=== PATIENT | female | born 1935 | race Caucasian/White ===

== ENCOUNTER 2018-06-24 15:48 | Inpatient (IN) | payer OTHER ==
[~2018-06-24] VITALS: Ht 160 cm; Wt 55.9 kg
--- NOTE | 2018-06-24 16:15 | ED DYSPNEA/ASTHMA COMPLAINT ---
History of Present Illness General Chief Complaint: Dyspnea (COPD, CHF, Other) Stated Complaint: SOB Source: patient, family Exam Limitations: no limitations Vital Signs & Intake/Output Vital Signs & Intake/Output Vital Signs Date Time Temp Pulse Resp B/P B/P Pulse O2 O2 Flow FiO2 Mean Ox Delivery Rate 06/28 0905 89 130/68 06/28 0802 97 Nasal 3.0L Cannula 06/28 0800 96 Nasal 3.0L Cannula 06/28 0713 97.4 81 18 132/78 96 Nasal Cannula 06/28 0000 98 Nasal 3.0L Cannula 06/27 2222 96.8 72 18 128/84 98 Nasal 3.0L Cannula 06/27 1720 98 Nasal 3.0L Cannula 06/27 1600 Nasal 3.0L Cannula 06/27 1432 97.6 70 20 114/70 98 Nasal 3.0L Cannula ED Intake and Output 06/28 0000 06/27 1200 Intake Total 1020 Output Total 450 500 Balance 570 -500 Intake, IV 270 Intake, Oral 750 Number 5 Bowel Movements Output, Urine 450 500 Patient 124 lb Weight Weight Bed scale Measurement Method Allergies Coded Allergies: No Known Allergies (06/24/18) Reconcile Medications Apixaban (Eliquis) 5 MG TABLET 2 TAB PO BID Blood thinner Take 2 tablets twice a day till 07/03/18 and from 07/04/18 start taking 1 tablet twicw a day. Aspirin (Aspirin*) 81 MG TAB.CHEW 1 TAB PO DAILY HEART HEALTH (Reported) Dorzolamide HCl/Timolol Maleat (Dorzolamide-Timolol Eye Drops) 22.3 MG-6.8 MG/ML DROPS 1 GTT OPH BID EYE DROPS (Reported) Latanoprost 0.005 % DROPS 1 GTT OPH QPM EYE DROPS (Reported) Metoprolol Tartrate 100 MG TABLET 1 TAB PO DAILY BP (Reported) Pantoprazole Sodium 40 MG TABLET.DR 1 TAB PO DAILY PRN GERD (Reported) Rosuvastatin Calcium (Crestor) 5 MG TABLET 1 TAB PO DAILY HL (Reported) Triage Note: PT WITH HX OF LUNG CA IN REMISSION, TO ED WITH SOB WORSENING OVER THE LAST FEW DAYS. WEARS NC 02 AT NIGHT AT HOME. 02 SAT 82% RA IN TRIAGE. HX OF LEFT LOBECTOMY 10 YEARS AGO. AUDIBLE CRACKLES IN TRIAGE Triage Nurses Notes Reviewed? yes HPI: Patient presents for evaluation of worsening dyspnea over the past few days. Patient has a known history of lung cancer with a left pneumonectomy. She generally gets short of breath with exertion but this resolves typically within a few moments. Shortness of breath seems to have worsened over the past few days, coincident with chest congestion and a loose cough productive of brownish phlegm. The patient denies associated fever, wheezing, chest pain, leg swelling or orthopnea. She has oxygen available at home and previously only used it at night or on occasion. Over the past few days she has resorted to using the oxygen even during the day. Past History Travel History Traveled to [place] past 21 day No Medical History Any Pertinent Medical History? see below for history Respiratory: LUNG CA Gastrointestinal: HIATIAL HERNIA Cancer(s): LUNG CA Influenza Vaccine: 08/14/07 Surgical History Surgical History: LEFT LOBECTOMY Psychosocial History Who do you live with Patient/Self What is your primary language Indonesian Tobacco Use: Quit >30 days ago Family History Hx Contributory? No Review of Systems Review of Systems Constitutional: Reports: no symptoms. EENTM: Reports: no symptoms. Respiratory: Reports: see HPI. Cardiovascular: Reports: no symptoms. GI: Reports: no symptoms. Genitourinary: Reports: no symptoms. Musculoskeletal: Reports: no symptoms. Skin: Reports: no symptoms. Neurological/Psychological: Reports: no symptoms. Hematologic/Endocrine: Reports: no symptoms. Immunologic/Allergic: Reports: no symptoms. All Other Systems: Reviewed and Negative Physical Exam Physical Exam Respiratory: SEE BELOW Comments: Gen.: Well-nourished, well-developed, no acute respiratory distress. Head: Normocephalic, atraumatic. Eyes: Normal inspection bilaterally Ears: Normal inspection bilaterally Nose: Normal inspection Throat/mouth : Moist mucosa Neck: Supple, full range of motion, no goiter, mild JVD Heart: Regular rate and rhythm, no murmurs rubs or gallops Lungs: Decreased air entry over the left chest, thick rhonchi diffusely in the right chest Chest: Nontender Back: Normal range of motion Abdomen: Soft, nontender, nondistended, normal bowel sounds Extremities: Normal range of motion grossly, equal radial pulses, no cyanosis, 1 + pretibial edema, pitting, bilateral lower extremities Neurologic: Cranial nerves grossly intact, speech is clear Skin: warm and dry Psychiatric: Calm, cooperative, no apparent delusions or hallucinations Core Measures ACS in differential dx? No CVA/TIA Diagnosis No Sepsis Present: No Sepsis Focused Exam Completed? No Progress Differential Diagnosis: bronchitis, CHF, COPD, musculoskeletal pain, pulmonary embolism, pneumonia, pneumothorax, unstable angina Plan of Care: Orders Procedure Date/time Status CBC WITHOUT DIFFERENTIAL 06/29 600 Active BASIC ELECTROLYTES PLUS BUN&CR 06/29 06 Active RT: Reevaluation 06/28 0950 Active RT RE-EVALUATION 06/28 UNK Complete INCENTIVE SPIROMETRY TRX (GEN) 06/28 UNK Complete PT EVAL LOW COMPLEX 20 MIN 06/27 UNK Complete Gait Training 06/27 UNK Complete Current Medications Sig/Christina Start time Last Medication Dose Stop Time Status Admin Apixaban 10 MG BID 06/26 1530 AC 06/28 (Eliquis) 07/03 09 0904 Guaifenesin 10 ML Q6P PRN 06/25 2115 AC 06/28 (Robitussin) 0903 Dorzolamide HCl 1 GTT BID 06/25 2100 AC 06/28 (Trusopt 2% 10 ML) 0903 Latanoprost 1 GTT QPM 06/25 2100 AC 06/27 (Xalatan) 2202 Timolol Maleate 1 GTT BID 06/25 2100 AC 06/28 (Timoptic) 0903 Albuterol Sulfate 3 ML EVERY 4 HRS/AWAKE 06/25 1200 AC 06/28 (Proventil) 1159 Ceftriaxone Sodium 1,000 MG DAILY 06/25 1105 AC 06/28 (Rocephin) 0903 Methylprednisolone 40 MG Q12 06/25 1105 AC 06/28 (Solumedrol) 0903 Azithromycin 500 MG DAILY 06/25 1009 AC 06/28 (Zithromax) 0905 Sodium Chloride 250 ML (Normal Saline 0.9%) Aspirin 81 MG DAILY 06/25 0900 AC 06/28 (Aspirin) 0904 Atorvastatin Calcium 5 MG DAILY 06/25 0900 AC 06/28 (Lipitor) 0906 Metoprolol Tartrate 100 MG DAILY 06/25 0900 AC 06/28 (Lopressor) 0905 Oxycodone HCl 5 MG Q6PRN PRN 06/24 2045 AC (Roxicodone) Acetaminophen 650 MG Q6P PRN 06/24 2030 AC (Tylenol) Oxycodone/ 2 TAB Q6P PRN 06/24 2030 AC Acetaminophen (Percocet) Laboratory Tests 06/28/18 0620: Anion Gap 8, Estimated GFR 48 L, BUN/Creatinine Ratio 35.5 H, CBC w Diff MAN DIFF ORDERED, RBC 4.34, MCV 89.4, MCH 28.6, MCHC 32.0 L, RDW 16.5 H, MPV 8.3, Gran % 94.1 H, Lymphocytes % 2.6 L, Monocytes % 3.2, Eosinophils % 0.1, Basophils % 0, Absolute Granulocytes 8.8 H, Absolute Lymphocytes 0.2 L, Absolute Monocytes 0.3, Absolute Eosinophils 0, Absolute Basophils 0, Platelet Estimate VERIFIED BY SMEAR, Basophilic Stippling 1+, Anisocytosis 1+ 06/27/18 1620: Anion Gap 12, Estimated GFR 39 L, BUN/Creatinine Ratio 32.3 H 06/27/18 1300: Sodium Cancelled, Potassium Cancelled, Chloride Cancelled, Carbon Dioxide Cancelled, Anion Gap Cancelled, BUN Cancelled, Creatinine Cancelled, BUN/ Creatinine Ratio Cancelled Initial ED EKG: NSR, rate (60's) Prior EKG: unchanged Comments: 06/24/2018 6:00:15 PM patient's case discussed with Dr. Drake, Dr. Azul and case management. 06/24/2018 7:30:51 PM I have paged Dr. Drake regarding the pulmonary embolism seen on CTA of the chest. I have updated the MOD. Given that this patient has only one lung, patient's case will be discussed with Dr. Drake to determine where this patient will be treated (floors versus telemetry versus ICU). I have updated LITO. Of note, she has declined a rectal examination stating that she was just evaluated by Dr. Wisdom and has no reason for GI bleeding. Departure Departure Disposition: STILL A PATIENT Condition: Stable Clinical Impression Primary Impression: Dyspnea Qualifiers: Dyspnea type: dyspnea on exertion Qualified Code: R06.09 - Other forms of dyspnea Secondary Impressions: Hx of cancer of lung, Hyponatremia Referrals: Gabe Drake MD (PCP/Family) Departure Forms: Customer Survey General Discharge Information Prescriptions: Current Visit Scripts Apixaban (Eliquis) 2 TAB PO BID #60 TAB Take 2 tablets twice a day till 07/03/18 and from 07/04/18 start taking 1 tablet twicw a day. Admission Note Spoke With: Gabe Drake MD Documentation of Exam: Documentation of any treatments & extenuating circumstances including Concerns Regarding Discharge (functional status, medication knowledge or non-compliance, living conditions, etc.) that warrant an admission rather than observation: Patient presents with dyspnea of an unclear etiology. She has a history of left pneumonectomy secondary to lung cancer. In addition to this the patient's emergency Department evaluation reveals hyponatremia and hyperkalemia. The patient's dyspnea clearly worsens on exertion and she now requires oxygen supplementation to maintain normal O2 sats or elevations. I do not feel she is a good candidate for outpatient management. I feel the exertion of all patient treatment would worsen her hypoxia potentially lead to chest pain and respiratory failure. In addition, her hyponatremia places her at risk of tremors, muscle weakness and seizures. This would also compromised her ability to comply with outpatient treatment. While in the hospital I feel this patient requires serial sodium determinations and fluid restriction. If the patient's sodium does not respond then nephrology consultation to be considered. Given the patient's elevated d-dimer, a pulmonary embolism should also be pursued ( results of chest CTA should be reviewed and care adjusted accordingly). Given the patient's history of lung cancer and pneumonectomy, pulmonary consultation should be considered. I feels patient will require a multiple day hospitalization. Addendum: Additional testing is revealed that the patient has a right lower lung pulmonary embolism. This places her at high risk of worsening hypoxia and respiratory failure. She requires heparinization to treat her pulmonary embolism to prevent propagation. Critical Care Note Critical Care Note Critical Care Time: 30-74 min
[2018-06-24 16:24] LABS: ABSOLUTE BASOPHIL COUNT 0 /CUMM (0.0-0.2); ABSOLUTE EOSINOPHIL COUNT 0.3 /CUMM (0.0-0.7); ABSOLUTE GRANULOCYTE CT 6.3 /CUMM (1.4-6.5); ABSOLUTE LYMPH COUNT 0.6 /CUMM (1.2-3.4); ABSOLUTE MONOCYTE COUNT 0.5 /CUMM (0.10-0.60); BASOPHIL % 0.1 % (0.0-2.0); EOSINOPHIL % 3.3 % (0-5); GRANULOCYTE % 82.2 % (42.2-75.2); HEMATOCRIT 43.8 % (37-47); MEAN CORPUSCULAR HGB 28.2 PG (27.0-31.0); MEAN CORPUSCULAR HGB CONC 32.3 G/DL (33.0-37.0); MEAN CORPUSCULAR VOLUME 87.4 FL (81.0-99.0); MEAN PLATELET VOLUME 8.5 FL (7.4-10.4); RBC DISTRIBUTION WIDTH 16.1 % (11.5-14.5); RED BLOOD CELL CT 5.01 /CUMM (4.20-5.40)
[2018-06-24 16:28] LABS: WHITE BLOOD CELL COUNT 8.4 /CUMM (4.8-10.8)
[2018-06-24 16:36] LABS: PLATELET COUNT 251 /CUMM (130-400)
--- NOTE | 2018-06-24 16:41 | RADIOLOGY REPORT ---
EXAMINATION: XR PORTABLE CHEST CLINICAL INFORMATION: Shortness of breath COMPARISON: 06/20/2018 TECHNIQUE: Portable frontal view of the chest was obtained. FINDINGS: Stable appearance of the chest status post left pneumonectomy with opacification of the left hemithorax secondary to some degree of mediastinal shift and a large hernia. The right lung is relatively clear, the previously seen right lower lobe airspace opacity is less conspicuous. There is blunting of the right costophrenic sulcus which may reflect a small effusion versus atelectasis. No pneumothorax. IMPRESSION: Blunting of the right costophrenic sulcus may reflect a trace effusion versus atelectasis. Stable appearance of the left chest.
[2018-06-24 19:21] LABS: PT 12.9 SEC (9.4-12.5); PTT 25 SEC (25-37)
--- NOTE | 2018-06-24 19:23 | CT SCAN REPORT ---
EXAMINATION: CT CHEST PE STUDY CLINICAL INFORMATION: Dyspnea. History of lung cancer. Presumptive diagnosis of PE. COMPARISON: CT scan of the chest dated 12/07/2013 TECHNIQUE: Prior to contrast administration, localization images were obtained. After the administration of 95 mL of intravenous Optiray 320, multidetector CT volume acquisition of the chest was performed. 3-D postprocessing was performed with multiplanar reconstructions and MIP images obtained at the acquisition workstation under concurrent physician supervision. DLP: 200.91 mGy-cm. FINDINGS: Pulmonary arteries/cardiovascular structures: The bolus timing on this study was acceptable for visualization of the pulmonary arterial tree. There are several filling defect seen in the medial basal and posterior basal segmental and subsegmental arteries, consistent with acute pulmonary emboli. There is likely subtle right heart strain as evidenced by enlargement of the right atrium and right ventricle when compared to the previous study. No bowing of the interventricular septum to the left is seen but there is bowing of the intra-atrial septum noted. There is extensive reflux of contrast into the IVC and intrahepatic veins, possibly due to forceful injection and/or elevated right heart pressures. Lungs: The patient is status post left pneumonectomy with consequent volume loss in the left hemithorax and shift of the mediastinum toward the left side. Small amount of fluid is seen in the left hemithorax with pleural thickening and mild enhancement, similar to prior exam. New discontinuous calcifications of the left pleura are seen. The remaining right lung is hyperexpanded. Small right-sided pleural effusion is seen layering posteriorly. The previously seen right upper lobe irregular parenchymal opacity appears to have coalesced and has a irregular shaped on the axial images but appears to correspond to a segmental area of dense consolidation on the coronal and sagittal reconstructions with associated air bronchograms and mild bronchiectasis. Findings may represent posttreatment changes and scarring. A small 0.6 x 0.5 cm nodular density is seen anteriorly in the right upper lobe (series 2, image 166), new from prior exam. Additional small subcentimeter nodular densities are seen in the right middle lobe (series 2, image 172, 213), also new from prior exam. A 2.1 x 0.7 cm area of patchy masslike consolidation is seen in the right middle lobe (series 2, image 196), new from prior exam. There is overall subtle groundglass opacity seen in the right lung. Evaluation is limited by motion artifact. Dependent atelectatic changes are seen in the right lower lobe Lymphatic structures: There is no lymphadenopathy. Upper abdomen: The gallbladder is incompletely imaged but appears to be edematous with gallbladder wall edema noted. Slight indistinctness of the surrounding tissue planes and small volume of ascites is seen in the upper abdomen. The setting of ascites, the gallbladder appearance is nonspecific and may be due to sympathetic reaction rather than primary gallbladder disease. Close clinical correlation will be needed. Limited evaluation of the upper abdominal viscera demonstrates no other focal abnormality. Bones: Diffuse osteopenia with multilevel mild vertebral spondylosis in the thoracic spine. No suspicious bone findings. IMPRESSION: 1. Positive pulmonary emboli in the right lower lobe segmental and subsegmental pulmonary arteries to the medial basal and posterior basal segments. There may be associated secondary right heart strain as discussed above. 2. Status post left pneumonectomy with evolving posttreatment changes seen in the left hemithorax. 3. Small irregular nodular densities are seen scattered throughout the right lung, all of uncertain etiology. Differential possibilities would include metastatic disease versus infectious or inflammatory processes. Close clinical correlation is requested. 4. Coalescing dense consolidation in the right upper lobe is seen, most likely representing focal area of fibrosis/posttreatment changes. Correlation with patient's treatment history is requested. 5. Abnormal gallbladder wall thickening and edema, incompletely assessed. This finding may be reactive to the presence of small volume of ascites in the right upper quadrant. Close clinical correlation is requested to exclude acute cholecystitis. This critical result was discussed with Dr. Sung Perry 06/24/2018, 7:05 PM and it was ascertained that the content and urgency of this report was understood at the time of direct communication.
--- NOTE | 2018-06-24 20:34 | History & Physical ---
Gutierrez Martines 06/24/182032: General Information and HPI MD Statement: I have seen and personally examined LITO TOBIN and documented this H&P. The patient is a 82 year old F who presented with a patient stated chief complaint of [worsening shortness of breath]. Source of Information: patient, family, friend Exam Limitations: no limitations History of Present Illness: The patient is an 82-year-old lady with past medical history significant for lung cancer (that resulted to left sided pneumonectomy) who presented to emergency department with worsening of shortness of breath for the past few days. She has been relatively doing fine until 3 weeks ago when she has started to have worsening shortness of breath. Her package yarns drying machine operator is Dr. Thurman, and she recommended her to use oxygen at night 2 L/min after pneumonectomy. For the past few days she has needed oxygen also during the day. She also mentioned that they have found 2 spots of cancer in the right lung. The last dose of chemotherapy was many years ago. She believes that chemotherapy has caused her to have runny nose, which was cured by nasal spray that Dr. Thurman prescribed for her, but the patient discontinued it when she found the that it was a steroids. She states that she had thick brown sputum which has turned to yellow. She does not have any fever or sweating. She also states that she has decreased food intake recently due to different nutritional recommendations from different people. She denies any chest pain, dizziness, fever, wheezing, leg swelling or orthopnea. During the history and physical exam she was accompanied by her friend and her niece. Past medical history: Lung cancer which resulted in left-sided pneumonectomy, hyperlipidemia, glaucoma Social history: She has smoked for 40 years and quit smoking 15 years ago, she rarely drinks alcohol, and has never used any drugs Surgical history: Left-sided pneumonectomy in 2006, 2 cervical disc repairs in 1990, appendectomy Allergy: No known allergy to medications or foods Allergies/Medications Allergies: Coded Allergies: No Known Allergies (06/24/18) Compliance With Home Meds: GOOD Past History Travel History Traveled to [place] past 21 day No Medical History Respiratory: LUNG CA Gastrointestinal: HIATIAL HERNIA Cancer(s): LUNG CA Influenza Vaccine: 08/14/07 Surgical History Surgical History: LEFT LOBECTOMY Review of Systems Review of Systems Constitutional: Reports: see HPI. Exam & Diagnostic Data Last 24 Hrs of Vital Signs/I&O Vital Signs Date Time Temp Pulse Resp B/P B/P Pulse O2 O2 Flow FiO2 Mean Ox Delivery Rate 06/24 2304 97.5 60 20 142/80 92 06/24 2152 Nasal 3.0L Cannula 06/24 2114 96.9 60 20 156/69 100 Nasal 2.0L Cannula 06/24 1937 97.7 67 20 156/80 97 Room Air 06/24 1617 99 Nasal 2.0L Cannula 06/24 1559 129/100 96 Nasal 3.0L Cannula 06/24 1551 97.0 19 06/24 1550 66 82 Room Air Intake & Output 06/25 0800 06/25 0000 06/24 1600 Intake Total 0 Output Total Balance 0 Intake, Oral 0 Patient 120 lb Weight Weight Bed scale Measurement Method Physical Exam General Appearance Alert, Oriented X3, Cooperative, No Acute Distress Skin No Rashes, No Breakdown Skin Temp/Moisture Exam: Warm/Dry Sepsis Skin Exam (color): Normal for Ethnicity HEENT Atraumatic, PERRLA, EOMI, Mucous Membr. moist/pink Neck Supple, No JVD, No thryomegaly, No LAD, Old scar present on neck Cardiovascular Regular Rate, Normal S1, Normal S2 Lungs No breathing sounds on the left side, crackles on the right side Abdomen Normal Bowel Sounds, Soft, No Tenderness, Old appendectomy scar present on RLQ Neurological Normal Speech, Strength at 5/5 X4 Ext, Normal Tone, Sensation Intact, Cranial Nerves 3-12 NL Extremities No Clubbing, No Cyanosis, Normal Pulses, 1+ right sided pitting edema up to mid calf. Vascular Normal Pulses, Pulses Symmetrical Sepsis Peripheral Pulse Location: Dorsalis Pedis Sepsis Peripheral Pulse Exam: Normal Sepsis Cap Refill Exam: <2 Sec Assessment/Plan Assessment: The patient is an 82-year-old female who has past medical history of lung cancer with left-sided pneumonectomy, who presented to the ED with chief complaint of worsening shortness of breath for the past couple of days. Pulmonary emboli: The patient has a significant past medical history for lung cancer and left-sided pneumonectomy, she mentions that recently she has been diagnosed with 2 spots of new cancers on the right side. She also states that she has had productive coughs with thick brown sputum which has changed to yellow recently. She denies any chest pain. CTA of chest has shown pulmonary emboli in the right side lung in right lower segmental and subsegmental pulmonary arteries. Plan: TRC, heparin, pulmonology consult with Dr. Thurman in the morning, sputum culture, serial EKGs and troponins Hyperlipidemia: The patient was diagnosed with hyperlipidemia previously Plan: Continue atorvastatin Glaucoma: She was diagnosed with glaucoma Plan: Ophthalmic drops of latanoprost CODE STATUS this patient is DNR/DNI As Ranked By This Provider Problem List: 1. Dyspnea Qualifiers Dyspnea type: dyspnea on exertion Qualified Code: R06.09 - Other forms of dyspnea 2. Hyponatremia 3. Hx of cancer of lung Core Measures/Misc (06/30) Acute Coronary Syndrome ACS Diagnosis: No Congestive Heart Failure Congestive Heart Failure Diagnosis No Cerebrovascular Accident CVA/TIA Diagnosis: No VTE (View Protocol) VTE Risk Factors Age>40 No Mechanical VTE Prophylaxis d/t N/A MechProphylax Ordered No VTE Pharm Prophylaxis d/t NA PharmProphylax ordered Sepsis (View protocol) Sepsis Present: No If YES complete Sepsis Event Note If YES complete Sepsis Event Note Katie Macedo 06/24/182037: General Information and HPI Allergies/Medications Home Med list Apixaban (Eliquis) 5 MG TABLET 2 TAB PO BID Blood thinner Take 2 tablets twice a day till 07/03/18 and from 07/04/18 start taking 1 tablet twicw a day. Aspirin (Aspirin*) 81 MG TAB.CHEW 1 TAB PO DAILY HEART HEALTH (Reported) Azithromycin 250 MG TABLET 1 TAB PO DAILY Pneumonia . Dorzolamide HCl/Timolol Maleat (Dorzolamide-Timolol Eye Drops) 22.3 MG-6.8 MG/ML DROPS 1 GTT OPH BID EYE DROPS (Reported) Latanoprost 0.005 % DROPS 1 GTT OPH QPM EYE DROPS (Reported) Metoprolol Tartrate 100 MG TABLET 1 TAB PO DAILY BP (Reported) Pantoprazole Sodium 40 MG TABLET.DR 1 TAB PO DAILY PRN GERD (Reported) Prednisone 5 MG TABLET 0 PO DAILY COPD On Take 07/01 40 MG 07/02-07/04 30 MG 07/05-07/07 20 MG 07/08-07/10 10 MG 07/11-07/13 5 MG Then Stop Rosuvastatin Calcium (Crestor) 5 MG TABLET 1 TAB PO DAILY HL (Reported) Core Measures/Misc (06/30) Sepsis (View protocol) If YES complete Sepsis Event Note If YES complete Sepsis Event Note Resident Review Statement Resident Statement: examined this patient, discussed with internal investigator, agreed with internal investigator Other Findings: Mrs Tomlinson,is a very pleasant 82 YO female with past medical history of non- small cell lung cancer status post left pneumonectomy, hyperlipidemia, GERD, hypertension came in with chief complaint of worsening shortness of breath 2-3 weeks prior to presentation. Apparently the patient was doing fine when she started to have worsening shortness of breath since 3 weeks prior to today's presentation, last week she went to her primary care, had a barium swallow along with chest x-ray and blood work done (she does not know what the results were), she plan to see her package yarns drying machine operator Dr. tanner this week when she notice worsening shortness of breath with increased sputum production, thick and dark brown, now more yellowish since last few days. She denied any fever, cough diaphoresis, chest pain, lower extremity edema, nausea, vomiting, diarrhea or any other symptoms. Review of system as mentioned above. Physical examination she was alert oriented to time place and person, not in any acute distress. HEENT PERRLA. Neck no JVD. CVS S1-S2 present, systolic murmur present. RS air entry bilaterally equal, no adventitious sounds, decreased air entry on left side. Per abdomen soft, nontender, small scar noted on the right side of the abdomen. Bilateral lower extremity, mild to pedal edema noted. Her vitals on examination were temperature of 96.9, pulse of 60, respiration of 20, blood pressure 156/69, she was saturating 100% on 2 L. She had a white count of 9.4, H/H of 14.1/43.8, platelet of 251. Sodium of 129 (baseline 144), potassium 5.3, BUN/creatinine 29/0.8, glucose of 130. ProBNP elevated to 5020. D-dimer elevated at 948 Chest x-ray showed blunting of the right costophrenic sulcus, may reflect a trace effusion versus atelectasis. CTA chest shows positive pulmonary emboli in the right lower segmental and subsegmental pulmonary arteries to the medial basal and posterior basal segments. Status post left pneumonectomy with evolving posttreatment changes were also seen in the left hemithorax. Small irregular nodular densities seen scattered throughout the right lung. Dense consolidation in the right upper lobe, most likely representing an area of fibrosis or posttreatment change especially with no signs of sepsis. Problem list along with assessment and plan. 1 Shortness of breath with right lower segmental and subsegmental pulmonary emboli. * Patient's presentation of acute shortness of breath, with previous history of lung cancer definitely puts her at high risk of pulmonary emboli, d-dimer was initially found to be elevated, CTA positive for PE, we will start IV heparin, will need to obtain echocardiogram to rule out right heart strain. * Consult with Dr. tanner in the morning (she follows with her). * Continue to monitor vitals, continue oxygen, maintain saturation greater than 92%, continue to monitor intake and output, consider bilateral lower extremity Doppler to rule out DVT. 2 Hyponatremia. * Patients baseline sodium is 144, however more recently it has been 135, now 121 * we will restrict the patient to 1200 mL of free water intake, if needed can add salt tablets, check UA, urine lites and serum osmolarity, as the patient is not acutely symptomatic, and seems to be euvolemic, and seems to be subacute, we will continue to follow lytes and continue to monitor BEP. 3 Rule out acute coronary syndrome. * Ct daily aspirin, continue statin, serial EKG and troponin, echocardiogram in a.m. 4 elevated proBNP with trace effusion. * There is no evidence of fluid overload,, no evidence of edema, will continue to monitor intake and output and daily weight. 5. History of hypertension. * Ct home medication of metoprolol. 6. History of hyperlipidemia. * Ct home med of Statin 7. Ct drops for her glaucoma DNR/DNI DVT prophylaxis with Lovenox. Regular diet with 1200 mL water restriction. Pain pathway
[2018-06-24] MEDS ORDERED: CRESTOR5 M1 PO (21:03)
[2018-06-24] MEDS ORDERED: METOPROLOL TAR100 M1 PO (21:03)
[2018-06-24] MEDS ORDERED: ASPIRIN81 M4 PO (21:04)
[2018-06-24] MEDS ORDERED: PANTOPRAZOLE SO40 M1 PO (21:04)
[2018-06-24] MEDS ORDERED: LATANOPROST2.5 ML OPH (21:05)
[2018-06-24] MEDS ORDERED: DORZOLAMIDE-TIM10 ML OPH (21:05)
--- NOTE | 2018-06-24 21:10 | Admission Certification ---
Admission Certification Certification Statement - As attending physician, I certify that at the time of - admission, based on clinical presentation, severity of - symptoms, need for further diagnostic testing and - therapeutic interventions, and risk of adverse outcomes - without in-hospital treatment, in my clinical assessment, - this patient requires an acute hospital stay for a minimum - of two nights or longer. I have also considered psychsocial - factors such as support system, advanced age, financial - issues, cognitive issues, and failed out-patient treatments, - past re-admission history, safety of patient, and lack of - compliance as applicable. Specific rationale supporting this admission is: Shortness of breath, and the patient with a pneumonectomy and also abnormal CAT scan with pulmonary emboli
--- NOTE | 2018-06-24 21:14 | PN- Att Addend ---
Attending Addendum Attending Brief Note 82-year-old white female with history of lung cancer and the previous pneumonectomy. Has oxygen she uses at home at night and follows with pulmonary and myself. She always has shortness of breath with exertion. But the shortness of breath became a little worse came to see me in the office had some cough and some congestion her oxygen saturation was on the low side. She was given antibiotics and was using the oxygen more often. But the breathing still got worse comes to the emergency room and evaluation showed that her white count was normal but the CAT scan of the chest besides the pneumonectomy shows couple of pulmonary emboli and some other subtle abnormalities. Patient denied any pains in her legs. The patient will be admitted will be started on heparin and eventually bridge to an oral anticoagulation. Will have Dr. Thurman evaluate the patient in the morning and see if she has any other recommendations and any other need for any more workup. Patient wishes to be a DNR/DNI seems hemodynamically stable to be admitted to the floor. Current Medications Sig/Christina Start time Last Medication Dose Route Stop Time Status Admin Acetaminophen 650 MG Q6P PRN 06/24 2030 AC PO Aspirin 81 MG DAILY 06/25 900 UNVr PO Atorvastatin Calcium 5 MG DAILY 06/25 900 UNVr PO Heparin Sodium 3,000 UNIT ONCE ONE 06/24 1930 DC 06/24 (Porcine) IV 06/24 Heparin Sodium 0 .STK-MED ONE 06/24 1921 DC (Porcine) .ROUTE Heparin Sodium 25,000 UNIT Q24H 06/24 1915 AC 06/24 (Porcine) IV 1939 Sodium Chloride 500 ML Metoprolol Tartrate 100 MG DAILY 06/25 900 UNVr PO Oxycodone HCl 5 MG Q6PRN PRN 06/24 2045 AC PO Oxycodone/ 2 TAB Q6P PRN 06/24 2030 AC Acetaminophen PO Laboratory Tests 06/24/18 1610: Anion Gap 10, Estimated GFR > 60, BUN/Creatinine Ratio 36.3 H, Glucose 130 H, Calcium 8.7, Total Bilirubin 0.6, AST 54 H, ALT 60 H, Alkaline Phosphatase 126 , Troponin I 0.01, [id number]-I-Tkzcxbiyvbi Pept 5020 H, Total Protein 6.1 L, Albumin 3.6, Globulin 2.5, Albumin/Globulin Ratio 1.4, PT 12.9 H, INR 1.18, APTT 25, D- Dimer High Sensitivty 948 H, CBC w Diff NO MAN DIFF REQ, RBC 5.01, MCV 87.4, MCH 28.2, MCHC 32.3 L, RDW 16.1 H, MPV 8.5, Gran % 82.2 H, Lymphocytes % 7.8 L, Monocytes % 6.6, Eosinophils % 3.3, Basophils % 0.1, Absolute Granulocytes 6.3, Absolute Lymphocytes 0.6 L, Absolute Monocytes 0.5, Absolute Eosinophils 0.3, Absolute Basophils 0 Vital Signs Date Time Temp Pulse Resp B/P B/P Pulse O2 O2 Flow FiO2 Mean Ox Delivery Rate 06/24 1937 97.7 67 20 156/80 97 Room Air 06/24 1617 99 Nasal 2.0L Cannula 06/24 1559 129/100 96 Nasal 3.0L Cannula 06/24 1551 97.0 19 06/24 1550 66 82 Room Air Patient also little hyponatremic in the potassium slightly elevated
[2018-06-24 23:04] VITALS: BP 142/80
[2018-06-25 03:05] LABS: PTT > 120 SEC (25-37)
[2018-06-25 06:58] VITALS: BP 140/80
[2018-06-25 07:26] LABS: ABSOLUTE BASOPHIL COUNT 0 /CUMM (0.0-0.2); ABSOLUTE EOSINOPHIL COUNT 0.2 /CUMM (0.0-0.7); ABSOLUTE LYMPH COUNT 0.6 /CUMM (1.2-3.4); ABSOLUTE MONOCYTE COUNT 0.8 /CUMM (0.10-0.60); BASOPHIL % 0.7 % (0.0-2.0); EOSINOPHIL % 3.5 % (0-5); GRANULOCYTE % 73.6 % (42.2-75.2); HEMATOCRIT 40.8 % (37-47); MEAN CORPUSCULAR HGB 28.6 PG (27.0-31.0); MEAN CORPUSCULAR HGB CONC 32.7 G/DL (33.0-37.0); MEAN CORPUSCULAR VOLUME 87.4 FL (81.0-99.0); MEAN PLATELET VOLUME 8.6 FL (7.4-10.4); PLATELET COUNT 249 /CUMM (130-400); RED BLOOD CELL CT 4.66 /CUMM (4.20-5.40); WHITE BLOOD CELL COUNT 6.7 /CUMM (4.8-10.8)
--- NOTE | 2018-06-25 08:00 | PN- Housestaff ---
Subjective Follow-up For: Right lung lower lobe PE subsegmental and segmental. Acute bronchitis Hyponatremia Tele-Events Since Last Visit: Patient remained in sinus rhythm with heart rate between 5867 Subjective: No overnight events. Patient remained afebrile. Seen and examined this morning. Patient denied chest pain, palpitation, nausea, vomiting, chill, fever , abdominal pain dysuria. She is on 4 L of oxygen and maintaining saturation 99 %. Patient reported that her baseline oxygen was 2 L and she was using at nighttime. Patient reported having cough and yellow colored sputum. Review of Systems Constitutional: Denies: chills, fever. EENTM: Reports: see HPI. Cardiovascular: Denies: chest pain, palpitations, syncope. Respiratory: Reports: cough, short of breath, sputum production. Denies: wheezing. Gastrointestinal: Denies: abdominal pain, constipation, diarrhea, nausea, vomiting. Genitourinary: Denies: discharge, frequency. Musculoskeletal: Reports: no symptoms. Neurological/Psychological: Denies: anxiety, confusion, depressed, headache, numbness. Objective Last 24 Hrs of Vital Signs/I&O Vital Signs Date Time Temp Pulse Resp B/P B/P Pulse O2 O2 Flow FiO2 Mean Ox Delivery Rate 06/25 1025 Nasal 3.0L Cannula 06/25 0811 Nasal 3.0L Cannula 06/25 0758 68 140/80 06/25 0658 97.5 68 20 140/80 99 06/24 2304 97.5 60 20 142/80 92 06/24 2152 Nasal 3.0L Cannula 06/24 2114 96.9 60 20 156/69 100 Nasal 2.0L Cannula 06/24 1937 97.7 67 20 156/80 97 Room Air 06/24 1617 99 Nasal 2.0L Cannula 06/24 1559 129/100 96 Nasal 3.0L Cannula 06/24 1551 97.0 19 06/24 1550 66 82 Room Air Intake & Output 06/25 1600 06/25 0800 06/25 0000 Intake Total 152 0 Output Total Balance 152 0 Intake, IV 152 Intake, Oral 0 Patient 125 lb 120 lb Weight Weight Bed scale Measurement Method Physical Exam General Appearance: Alert, Oriented X3, Cooperative Skin Temp/Moisture Exam: Warm/Dry Sepsis Skin Exam (color): Normal for Ethnicity HEENT: Atraumatic, PERRLA, EOMI Neck: Supple Cardiovascular: Normal S1, Normal S2 Lungs: Clear to Auscultation Abdomen: Soft, No Tenderness Neurological: Normal Speech, Strength at 5/5 X4 Ext, Normal Tone Extremities: b/l grade 1 pedal edema Assessment/Plan Assessment: 82 YO F with past medical history of non-small cell lung cancer status post left pneumonectomy, hyperlipidemia, GERD, hypertension came in with chief complaint of worsening shortness of breath 2-3 weeks prior to presentation. Patient reported that she is recently diagnosed with cancer in the right lung. Being seen on telemetry floor for following problems. Acute on chronic hypoxic respiratory failure due to right lung lower lobe subsegmental and segmental PE: -Possibly due to PE and acute bronchitis. Patient was on 2 L of oxygen after her pneumonectomy as she was not able maintain her saturation after pneumonectomy. -Patient has history of non-small cell lung cancer with chemo and radiotherapy. -Patient reported shortness of breath for last couple of days. CTA showed right lung lower lobe segmental and subsegmental PE. -Continue IV heparin for anticoagulation. We will change her to oral anticoagulation before discharge. -Continue supplemental oxygen as needed to keep saturation above 92%. -Follow-up pulmonology recommendations. -Her troponins remain negative for any strain on right heart. -Lower extremity Doppler studies negative for DVT. -We will follow-up for right-sided pleural effusion that could be due to pulmonary embolism. If her respiratory status worsened we will check ABGs and repeat imaging study for pleural effusion. -Follow-up swallow evaluation as patient is complaining of difficulty in swallowing the pills. -Follow-up oncology recommendation Acute bronchitis: -Patient reported cough with yellow colored sputum the last couple of days. Patient is afebrile and her WBC count is within normal limits. -Possibly patient has acute bronchitis. -Follow-up sputum cultures -Continue azithromycin 500 mg daily -Continue ceftriaxone empirically to cover for typical pneumonia. If patient remained afebrile and her WBC count remained within normal limits with negative sputum culture we will discontinue. -Continue Solu-Medrol 40 mg every 12 hourly -Continue TRC nebulization as needed. Hyponatremia: -Could be hypovolemic hyponatremia and we will rule out SIAD that could be possibble due to pulmonary pathology. -Follow up urine lytes and osmolality. serum osmolality -Fluid restriction to 1200ml/day. -Today her Na was 130. History of hypertension hyperlipidemia: -Continue metoprolol and Lipitor History of GERD: -Continue omeprazole as needed DVT prophylaxis: Mechanical and patient is already on IV heparin CODE STATUS: DNR/intu Problem List: 1. Acute on chronic respiratory failure with hypoxia 2. Pulmonary embolism Pain Ratin Pain Location: none Pain Goal: Remain pain free Pain Plan: pain pathway Tomorrow's Labs & Rationales: cbc/bep/mag
--- NOTE | 2018-06-25 10:06 | PN- Att Addend ---
Attending Addendum Attending Brief Note Patient sitting up in bed still a little short of breath on oxygen difficult to bring up secretions. Will order TRC Vital signs are stable no fever. No new changes on physical. Patient will be going for leg ultrasound to make sure she does not have any signs or symptoms of DVT. Also have Dr. Thurman reevaluate the patient regarding her anticoagulation and further treatments. 24 TOTALS 06/25 0000 06/24 0000 Intake Total 0 Output Total Balance 0 Intake, Oral 0 Patient 120 lb Weight Weight Bed scale Measurement Method Laboratory Tests 06/25/18 0617: Anion Gap 7, Estimated GFR > 60, BUN/Creatinine Ratio 35.0 H, Magnesium 1.8, Troponin I 0.02, CBC w Diff NO MAN DIFF REQ, RBC 4.66, MCV 87.4, MCH 28.6, MCHC 32.7 L, RDW 16.0 H, MPV 8.6, Gran % 73.6, Lymphocytes % 9.6 L, Monocytes % 12.6 H, Eosinophils % 3.5, Basophils % 0.7, Absolute Granulocytes 5.0, Absolute Lymphocytes 0.6 L, Absolute Monocytes 0.8 H, Absolute Eosinophils 0.2, Absolute Basophils 0 06/25/18 0500: Urine Color YEL, Urine Clarity CLEAR, Urine pH 6.0, Ur Specific [place] 1.010, Urine Protein 30 H, Urine Ketones NEG, Urine Nitrite NEG, Urine Bilirubin NEG, Urine Urobilinogen 0.2, Ur Leukocyte Esterase NEG, Ur Microscopic SEDIMENT EXAMINED, Urine WBC RARE, Ur Epithelial Cells RARE, Urine Hemoglobin NEG, Urine Glucose NEG 06/25/18 0500: Urine Osmolality 365, Ur Random Creatinine 50.9, Ur Random Sodium 8 L, Ur Random Potassium 19.3, Fraction Sodium Excret 0.1 06/25/18 0200: APTT > 120 *H 06/24/18 2235: Serum Osmolality 294, Troponin I 0.02 06/24/18 1610: Anion Gap 10, Estimated GFR > 60, BUN/Creatinine Ratio 36.3 H, Glucose 130 H, Calcium 8.7, Total Bilirubin 0.6, AST 54 H, ALT 60 H, Alkaline Phosphatase 126 , Troponin I 0.01, [id number]-I-Qezfkkvrzgj Pept 5020 H, Total Protein 6.1 L, Albumin 3.6, Globulin 2.5, Albumin/Globulin Ratio 1.4, PT 12.9 H, INR 1.18, APTT 25, D- Dimer High Sensitivty 948 H, CBC w Diff NO MAN DIFF REQ, RBC 5.01, MCV 87.4, MCH 28.2, MCHC 32.3 L, RDW 16.1 H, MPV 8.5, Gran % 82.2 H, Lymphocytes % 7.8 L, Monocytes % 6.6, Eosinophils % 3.3, Basophils % 0.1, Absolute Granulocytes 6.3, Absolute Lymphocytes 0.6 L, Absolute Monocytes 0.5, Absolute Eosinophils 0.3, Absolute Basophils 0 Vital Signs Date Time Temp Pulse Resp B/P B/P Pulse O2 O2 Flow FiO2 Mean Ox Delivery Rate 06/25 0811 Nasal 3.0L Cannula 06/25 0758 68 140/80 06/25 0658 97.5 68 20 140/80 99
--- NOTE | 2018-06-25 11:59 | ULTRASOUND REPORT ---
EXAMINATION: US TRIPLEX OF LOWER EXTREMITIES, BILATERAL CLINICAL INFORMATION: This is an 82-year-old female with shortness of breath. History of pulmonary embolism. Leg swelling. COMPARISON: None TECHNIQUE: Color-flow triplex imaging with spectral analysis and compression Doppler were performed on the lower extremities. FINDINGS: Respiratory variation, normal compression and augmented flow are noted throughout the lower extremities. The visualized common femoral vein, superficial femoral vein, profunda femoral vein, popliteal vein and midcalf peroneal and posterior tibial venous segments show no evidence of deep venous thrombosis. There is no Copeland's cyst. IMPRESSION: No evidence of deep venous thrombosis involving the bilateral lower extremities.
[2018-06-25 13:28] LABS: PTT > 120 SEC (25-37)
[2018-06-25 14:53] VITALS: BP 110/80
--- NOTE | 2018-06-25 15:47 | RADIOLOGY REPORT ---
EXAMINATION: XR PORTABLE CHEST CLINICAL INFORMATION: Shortness of breath. COMPARISON: CT chest and CXR, 06/24/2018. CXR from 06/20/2018. TECHNIQUE: Portable frontal view of the chest was obtained. FINDINGS: Status post left pneumonectomy with complete opacification of the left hemithorax. Left-sided shift of the cardiomediastinal structures and left diaphragm elevation due to the volume loss. The right lung is well expanded and without acute abnormality compared to 06/24/2018. There appears to be a linear opacity of scarring or atelectasis at the right apex. No acute pulmonary edema, focal consolidation or pneumothorax. Again noted is a trace right pleural effusion. The visualized bones are intact. IMPRESSION: - Persistent trace right pleural effusion. - No acute abnormalities in the right lung compared to the chest radiograph of 06/24/2018. - Status post left pneumonectomy.
--- NOTE | 2018-06-25 19:01 | Cons- Pulmonary ---
General Information and HPI Consulting Request Date of Consult: 06/25/18 Requested By: Dr. Drake Reason for Consult: Pneumonia Source of Information: patient, old records Exam Limitations: no limitations History of Present Illness: The patient is an 82 year old female well known to me from previous outpatient visits and hospitalizations. The patient has a past medical history significant for lung cancer which resulted in left-sided pneumonectomy in 2006, hyperlipidemia, and glaucoma. She has not had any evidence of recurrent malignancy. The patient developed increased shortness of breath, chest congestion, sputum production, wheezing and worsening fatigue. This did not improve with outpatient therapy. She came to the ED for evaluation of worsening of her symptoms. The patient had an O2 desaturation down to 82% on room air. The patient had a CTA which was positive for subsegmental pulmonary embolism. She was placed on a heparin drip. She is also on a Zpak for possible bronchitis. Allergies/Medications Allergies: Coded Allergies: No Known Allergies (06/24/18) Home Med List: Aspirin (Aspirin*) 81 MG TAB.CHEW 1 TAB PO DAILY HEART HEALTH (Reported) Dorzolamide HCl/Timolol Maleat (Dorzolamide-Timolol Eye Drops) 22.3 MG-6.8 MG/ML DROPS 1 GTT OPH BID EYE DROPS (Reported) Latanoprost 0.005 % DROPS 1 GTT OPH QPM EYE DROPS (Reported) Metoprolol Tartrate 100 MG TABLET 1 TAB PO DAILY BP (Reported) Pantoprazole Sodium 40 MG TABLET.DR 1 TAB PO DAILY PRN GERD (Reported) Rosuvastatin Calcium (Crestor) 5 MG TABLET 1 TAB PO DAILY HL (Reported) Current Medications: Current Medications Sig/Christina Start time Last Medication Dose Route Stop Time Status Admin Acetaminophen 650 MG Q6P PRN 06/24 2030 AC PO Albuterol Sulfate 3 ML EVERY 4 HRS/AWAKE 06/25 1200 AC 06/25 INH 1441 Alprazolam 0.25 MG ONCE ONE 06/25 1530 DC 06/25 PO 06/25 1531 1537 Alprazolam 0 .STK-MED ONE 06/25 1529 DC PO Aspirin 81 MG DAILY 06/25 0900 AC 06/25 PO 0758 Atorvastatin Calcium 5 MG DAILY 06/25 0900 AC 06/25 PO 0758 Azithromycin 500 MG DAILY 06/25 1009 AC 06/25 Sodium Chloride 250 ML IV 1414 Ceftriaxone Sodium 1,000 MG DAILY 06/25 1105 AC 06/25 IV 1407 Furosemide 0 .STK-MED ONE 06/25 1504 DC .ROUTE Furosemide 20 MG ONCE ONE 06/25 1500 DC 06/25 IV 06/25 1501 1506 Guaifenesin 600 MG Q12 06/25 1444 AC PO Guaifenesin/ 10 ML ONCE ONE 06/25 1445 CAN Dextromethorphan PO 06/25 1446 Heparin Sodium 3,000 UNIT ONCE ONE 06/24 1930 DC 06/24 (Porcine) IV 06/24 193 1940 Heparin Sodium 0 .STK-MED ONE 06/24 192 DC (Porcine) .ROUTE Heparin Sodium 25,000 UNIT Q24H 06/24 1915 AC 06/24 (Porcine) IV 194 Sodium Chloride 500 ML Influenza Virus 0.5 ML ONCE ONE 06/24 2245 DC Vaccine IM 06/24 2246 Magnesium Oxide 400 MG ONE ONE 06/25 1300 DC 06/25 PO 06/25 1301 1426 Magnesium Oxide 400 MG ONE ONE 06/25 0815 DC PO 06/25 0816 Methylprednisolone 40 MG Q12 06/25 1105 AC 06/25 IV 1407 Metoprolol Tartrate 100 MG DAILY 06/25 0900 AC 06/25 PO 0758 Oxycodone HCl 5 MG Q6PRN PRN 06/24 2045 AC PO Oxycodone/ 2 TAB Q6P PRN 06/24 2030 AC Acetaminophen PO Review of Systems Review of Systems All Other Systems: Reviewed and Negative Past History Travel History Traveled to [place] past 21 day No Medical History Blood Transfusion Hx: No Neurological: NONE EENT: NONE Cardiovascular: NONE Respiratory: LUNG CA Gastrointestinal: HIATIAL HERNIA Hepatic: NONE Renal: NONE Musculoskeletal: NONE Psychiatric: NONE Endocrine: NONE Blood Disorders: NONE 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 Home Smoking Status: Former Smoker Exam & Diagnostic Data Last 24 Hrs of Vital Signs/I&O Vital Signs Date Time Temp Pulse Resp B/P B/P Pulse O2 O2 Flow FiO2 Mean Ox Delivery Rate 06/25 1453 96.9 62 20 110/80 94 Nasal Cannula 06/25 1025 Nasal 3.0L Cannula 06/25 0811 Nasal 3.0L Cannula 06/25 0758 68 140/80 06/25 0658 97.5 68 20 140/80 99 06/24 2304 97.5 60 20 142/80 92 06/24 2152 Nasal 3.0L Cannula 06/24 2114 96.9 60 20 156/69 100 Nasal 2.0L Cannula 06/24 1937 97.7 67 20 156/80 97 Room Air Intake & Output 06/25 1600 06/25 0800 06/25 0000 Intake Total 500 152 0 Output Total Balance 500 152 0 Intake, IV 100 152 Intake, Oral 400 0 Patient 125 lb 120 lb Weight Weight Bed scale Measurement Method Physical Exam General Appearance: alert, awake, anxious, mild distress Head: atraumatic Neck: supple Respiratory: rhonchi, wheezing Cardiovascular: regular rate/rhythm Gastrointestinal: normal bowel sounds, soft, non-tender Extremities: no edema Skin: intact, normal color, warm/dry Last 48 Hrs of Labs/Elio: Laboratory Tests 06/25/18 1159: APTT > 120 *H 06/25/18 0617: Anion Gap 7, Estimated GFR > 60, BUN/Creatinine Ratio 35.0 H, Magnesium 1.8, Troponin I 0.02, CBC w Diff NO MAN DIFF REQ, RBC 4.66, MCV 87.4, MCH 28.6, MCHC 32.7 L, RDW 16.0 H, MPV 8.6, Gran % 73.6, Lymphocytes % 9.6 L, Monocytes % 12.6 H, Eosinophils % 3.5, Basophils % 0.7, Absolute Granulocytes 5.0, Absolute Lymphocytes 0.6 L, Absolute Monocytes 0.8 H, Absolute Eosinophils 0.2, Absolute Basophils 0 06/25/18 0500: Urine Color YEL, Urine Clarity CLEAR, Urine pH 6.0, Ur Specific [place] 1.010, Urine Protein 30 H, Urine Ketones NEG, Urine Nitrite NEG, Urine Bilirubin NEG, Urine Urobilinogen 0.2, Ur Leukocyte Esterase NEG, Ur Microscopic SEDIMENT EXAMINED, Urine WBC RARE, Ur Epithelial Cells RARE, Urine Hemoglobin NEG, Urine Glucose NEG 06/25/18 0500: Urine Osmolality 365, Ur Random Creatinine 50.9, Ur Random Sodium 8 L, Ur Random Potassium 19.3, Fraction Sodium Excret 0.1 06/25/18 0200: APTT > 120 *H 06/24/18 2235: Serum Osmolality 294, Troponin I 0.02 06/24/18 1610: Anion Gap 10, Estimated GFR > 60, BUN/Creatinine Ratio 36.3 H, Glucose 130 H, Calcium 8.7, Total Bilirubin 0.6, AST 54 H, ALT 60 H, Alkaline Phosphatase 126 , Troponin I 0.01, Owf-T-Iszpjzvvygi Pept 5020 H, Total Protein 6.1 L, Albumin 3.6, Globulin 2.5, Albumin/Globulin Ratio 1.4, PT 12.9 H, INR 1.18, APTT 25, D- Dimer High Sensitivty 948 H, CBC w Diff NO MAN DIFF REQ, RBC 5.01, MCV 87.4, MCH 28.2, MCHC 32.3 L, RDW 16.1 H, MPV 8.5, Gran % 82.2 H, Lymphocytes % 7.8 L, Monocytes % 6.6, Eosinophils % 3.3, Basophils % 0.1, Absolute Granulocytes 6.3, Absolute Lymphocytes 0.6 L, Absolute Monocytes 0.5, Absolute Eosinophils 0.3, Absolute Basophils 0 Diagnostic Data Other Results CTA: 1. Positive pulmonary emboli in the right lower lobe segmental and subsegmental pulmonary arteries to the medial basal and posterior basal segments. There may be associated secondary right heart strain as discussed above. 2. Status post left pneumonectomy with evolving posttreatment changes seen in the left hemithorax. 3. Small irregular nodular densities are seen scattered throughout the right lung, all of uncertain etiology. Differential possibilities would include metastatic disease versus infectious or inflammatory processes. Close clinical correlation is requested. 4. Coalescing dense consolidation in the right upper lobe is seen, most likely representing focal area of fibrosis/posttreatment changes. Correlation with patient's treatment history is requested. 5. Abnormal gallbladder wall thickening and edema, incompletely assessed. This finding may be reactive to the presence of small volume of ascites in the right upper quadrant. Close clinical correlation is requested to exclude acute cholecystitis. Assessment/Plan Impression/Plan: 1. Pulmonary emboli in the right lower lobe segmental and subsegmental pulmonary arteries to the medial basal and posterior basal segments. Possible associated secondary right heart strain. 2. Pneumonia. 3. AECOPD. 4. Lung cancer, s/p left pneumonectomy, without evidence or recurrent malignancy. 5. Hypoxemic respiratory failure. Recommendations: * Panculture. * Add ceftriaxone and azithro. * Solumedrol 40 mg IV BID. * Urine for strep pneumo and legoinella. * Lower extremity dopplers (done - negative for DVT). * Check echocardiogram, rule out right heart strain. * Continue heparin for theraputic PTT. * Oncology to be informed of new PE, and requested of recommendations on anticoagulation. * Continue nebs/TRC - discussed with respiratory. * O2 for saturations > 92% at rest. * Continue all supportive care. Consult Acknowledgment - Thank you for your consult request.
[2018-06-25 20:59] LABS: PTT 93 SEC (25-37)
[2018-06-25 21:50] VITALS: BP 96/60
[2018-06-26 05:39] LABS: PTT 73 SEC (25-37)
[2018-06-26 06:44] VITALS: BP 110/44
--- NOTE | 2018-06-26 07:16 | Cons- Oncology ---
General Information and HPI Consulting Request Date of Consult: 06/26/18 Requested By: Gabe Drake MD History of Present Illness: 82-year-old woman well known to me to me now admitted now admitted with progressive shortness The.patient was found to have pulmonary emboli . She denied chest pain or hemoptysis. She also denied leg swelling. Patient tells me that her sister had"blood clots" The patient's past history is remarkable for a left pneumonectomy in 2006. 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 Allergies/Medications Allergies: Coded Allergies: No Known Allergies (06/24/18) Home Med List: Aspirin (Aspirin*) 81 MG TAB.CHEW 1 TAB PO DAILY HEART HEALTH (Reported) Dorzolamide HCl/Timolol Maleat (Dorzolamide-Timolol Eye Drops) 22.3 MG-6.8 MG/ML DROPS 1 GTT OPH BID EYE DROPS (Reported) Latanoprost 0.005 % DROPS 1 GTT OPH QPM EYE DROPS (Reported) Metoprolol Tartrate 100 MG TABLET 1 TAB PO DAILY BP (Reported) Pantoprazole Sodium 40 MG TABLET.DR 1 TAB PO DAILY PRN GERD (Reported) Rosuvastatin Calcium (Crestor) 5 MG TABLET 1 TAB PO DAILY HL (Reported) Current Medications: Current Medications Sig/Christina Start time Last Medication Dose Route Stop Time Status Admin Acetaminophen 650 MG Q6P PRN 06/24 2030 AC PO Albuterol Sulfate 3 ML EVERY 4 HRS/AWAKE 06/25 1200 AC 06/25 INH 1441 Alprazolam 0.25 MG ONCE ONE 06/25 1530 DC 06/25 PO 06/25 1531 1537 Alprazolam 0 .STK-MED ONE 06/25 1529 DC PO Aspirin 81 MG DAILY 06/25 0900 AC 06/25 PO 0758 Atorvastatin Calcium 5 MG DAILY 06/25 0900 AC 06/25 PO 0758 Azithromycin 500 MG DAILY 06/25 1009 AC 06/25 Sodium Chloride 250 ML IV 1414 Ceftriaxone Sodium 1,000 MG DAILY 06/25 1105 AC 06/25 IV 1407 Dorzolamide HCl 1 GTT BID 06/25 2100 AC OPH Furosemide 0 .STK-MED ONE 06/25 1504 DC .ROUTE Furosemide 20 MG ONCE ONE 06/25 1500 DC 06/25 IV 06/25 1501 1506 Guaifenesin 10 ML Q6P PRN 06/25 2115 AC 06/25 PO 2146 Guaifenesin 600 MG Q12 06/25 1444 AC PO Guaifenesin/ 10 ML ONCE ONE 06/25 1445 CAN Dextromethorphan PO 06/25 1446 Heparin Sodium 25,000 UNIT Q24H 06/24 1915 AC 06/25 (Porcine) IV 2205 Sodium Chloride 500 ML Latanoprost 1 GTT QPM 06/25 2100 AC 06/25 OPH 2152 Magnesium Oxide 400 MG ONE ONE 06/25 1300 DC 06/25 PO 06/25 1301 1426 Magnesium Oxide 400 MG ONE ONE 06/25 0815 DC PO 06/25 0816 Methylprednisolone 40 MG Q12 06/25 1105 AC 06/25 IV 2146 Metoprolol Tartrate 100 MG DAILY 06/25 0900 AC 06/25 PO 0758 Oxycodone HCl 5 MG Q6PRN PRN 06/24 2045 AC PO Oxycodone/ 2 TAB Q6P PRN 06/24 2030 AC Acetaminophen PO Timolol Maleate 1 GTT BID 06/25 2100 AC 06/25 OPH 2146 Review of Systems Review of Systems: Patient denies headaches or dizziness. Patient denies nausea vomiting diarrhea change in weight. Patient denies dysuria hematuria. 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 Home Smoking Status: Former Smoker Exam & Diagnostic Data Vital Signs and I&O Vital Signs Date Time Temp Pulse Resp B/P B/P Pulse O2 O2 Flow FiO2 Mean Ox Delivery Rate 06/26 0644 97.6 75 20 110/44 95 Nasal Cannula 06/26 0255 95 Nasal 50% Cannula 06/26 0000 96 Nasal 50% Cannula 06/25 2233 95 Nasal 50% Cannula 06/250 97.4 75 20 96/60 97 CPAP 06/25 2017 97 Nasal 50% Cannula 06/25 1600 94 Nasal 40% Cannula 06/25 1453 96.9 62 20 110/80 94 Nasal Cannula 06/25 1025 Nasal 3.0L Cannula 06/25 0811 Nasal 3.0L Cannula 06/25 0758 68 140/80 Intake & Output 06/26 0800 06/26 0000 06/25 1600 Intake Total 68.8 100 500 Output Total 125 Balance 68.8 -25 500 Intake, IV 68.8 100 Intake, Oral 100 400 Output, Urine 125 Gen.: in NAD, wearing oxygen ENT: Sclera anicteric Chest: Normal respiratory effort, decreased breath sounds Cor: RRR, no extra sounds Abdomen: Soft, bowel sounds present, no tenderness, no rebound Extremities: Without clubbing, cyanosis, or asymmetric edema Neurology: Alert and oriented 3, no gross deficit Skin: No rashes Breasts: No palpable masses Last 48 Hours of Lab Results: Laboratory Tests 06/26 06/26 06/25 06/25 0621 0445 2035 1159 Chemistry Sodium Pending Potassium Pending Chloride Pending Carbon Dioxide Pending Anion Gap Pending BUN Pending Creatinine Pending BUN/Creatinine Ratio Pending Magnesium Pending Coagulation APTT (25 - 37 SEC) 73 H 93 H > 120 *H Hematology CBC w Diff Pending WBC Pending RBC Pending Hgb Pending Hct Pending MCV Pending MCH Pending MCHC Pending RDW Pending Plt Count Pending MPV Pending 06/25 06/25 0617 0500 Chemistry Sodium (137 - 145 mmol/L) 130 L Potassium (3.5 - 5.1 mmol/L) 4.8 Chloride (98 - 107 mmol/L) 92 L Carbon Dioxide (22 - 30 mmol/L) 31 H Anion Gap (5 - 16) 7 BUN (7 - 17 mg/dL) 28 H Creatinine (0.5 - 1.0 mg/dL) 0.8 Estimated GFR (>60 ml/min) > 60 BUN/Creatinine Ratio (7 - 25 %) 35.0 H Magnesium (1.6 - 2.3 mg/dL) 1.8 Troponin I (< 0.11 ng/ml) 0.02 Hematology CBC w Diff NO MAN DIFF REQ WBC (4.8 - 10.8 /CUMM) 6.7 RBC (4.20 - 5.40 /CUMM) 4.66 Hgb (12.0 - 16.0 G/DL) 13.4 Hct (37 - 47 %) 40.8 MCV (81.0 - 99.0 FL) 87.4 MCH (27.0 - 31.0 PG) 28.6 MCHC (33.0 - 37.0 G/DL) 32.7 L RDW (11.5 - 14.5 %) 16.0 H Plt Count (130 - 400 /CUMM) 249 MPV (7.4 - 10.4 FL) 8.6 Gran % (42.2 - 75.2 %) 73.6 Lymphocytes % (20.5 - 51.1 %) 9.6 L Monocytes % (1.7 - 9.3 %) 12.6 H Eosinophils % (0 - 5 %) 3.5 Basophils % (0.0 - 2.0 %) 0.7 Absolute Granulocytes (1.4 - 6.5 /CUMM) 5.0 Absolute Lymphocytes (1.2 - 3.4 /CUMM) 0.6 L Absolute Monocytes (0.10 - 0.60 /CUMM) 0.8 H Absolute Eosinophils (0.0 - 0.7 /CUMM) 0.2 Absolute Basophils (0.0 - 0.2 /CUMM) 0 Urines Urine Color (YEL,AMB,STR) YEL Urine Clarity (CLEAR) CLEAR Urine pH (5.0 - 8.0) 6.0 Ur Specific [place] (1.001 - 1.035) 1.010 Urine Protein (NEG,<30 MG/DL) 30 H Urine Ketones (NEG) NEG Urine Nitrite (NEG) NEG Urine Bilirubin (NEG) NEG Urine Urobilinogen (0.1 - 1.0 EU/dl) 0.2 Ur Leukocyte Esterase (NEG) NEG Ur Microscopic SEDIMENT EXAMINED Urine WBC (0 - 2 /HPF) RARE Ur Epithelial Cells (NONE,FEW) RARE Urine Hemoglobin (NEG) NEG Urine Glucose (N MG/DL) NEG 06/25 06/25 06/24 06/24 0500 0200 2235 1610 Chemistry Sodium (137 - 145 mmol/L) 129 L Potassium (3.5 - 5.1 mmol/L) 5.3 H Chloride (98 - 107 mmol/L) 89 L Carbon Dioxide (22 - 30 mmol/L) 30 Anion Gap (5 - 16) 10 BUN (7 - 17 mg/dL) 29 H Creatinine (0.5 - 1.0 mg/dL) 0.8 Estimated GFR (>60 ml/min) > 60 BUN/Creatinine Ratio (7 - 25 %) 36.3 H Glucose (65 - 99 mg/dL) 130 H Serum Osmolality (285 - 295 MOSM/KG) 294 Calcium (8.4 - 10.2 mg/dL) 8.7 Total Bilirubin (0.2 - 1.3 mg/dL) 0.6 AST (14 - 36 U/L) 54 H ALT (9 - 52 U/L) 60 H Alkaline Phosphatase (<127 U/L) 126 Troponin I (< 0.11 ng/ml) 0.02 0.01 [id number]-Txcdxsdvxjo Pept (<125 pg/mL) 5020 H Total Protein (6.3 - 8.2 g/dL) 6.1 L Albumin (3.5 - 5.0 g/dL) 3.6 Globulin (1.9 - 4.2 gm/dL) 2.5 Albumin/Globulin Ratio (1.1 - 2.2 %) 1.4 Coagulation PT (9.4 - 12.5 SEC) 12.9 H INR (0.90 - 1.19) 1.18 APTT (25 - 37 SEC) > 120 *H 25 D-Dimer High Sensitivty (0 - 243 ng/ml) 948 H Hematology CBC w Diff NO MAN DIFF REQ WBC (4.8 - 10.8 /CUMM) 8.4 RBC (4.20 - 5.40 /CUMM) 5.01 Hgb (12.0 - 16.0 G/DL) 14.1 Hct (37 - 47 %) 43.8 MCV (81.0 - 99.0 FL) 87.4 MCH (27.0 - 31.0 PG) 28.2 MCHC (33.0 - 37.0 G/DL) 32.3 L RDW (11.5 - 14.5 %) 16.1 H Plt Count (130 - 400 /CUMM) 251 MPV (7.4 - 10.4 FL) 8.5 Gran % (42.2 - 75.2 %) 82.2 H Lymphocytes % (20.5 - 51.1 %) 7.8 L Monocytes % (1.7 - 9.3 %) 6.6 Eosinophils % (0 - 5 %) 3.3 Basophils % (0.0 - 2.0 %) 0.1 Absolute Granulocytes (1.4 - 6.5 /CUMM) 6.3 Absolute Lymphocytes (1.2 - 3.4 /CUMM) 0.6 L Absolute Monocytes (0.10 - 0.60 /CUMM) 0.5 Absolute Eosinophils (0.0 - 0.7 /CUMM) 0.3 Absolute Basophils (0.0 - 0.2 /CUMM) 0 Urines Urine Osmolality (300 - 1000 MOSM/KG) 365 Ur Random Creatinine (mg/dL) 50.9 Ur Random Sodium (30 - 90 mmol/L) 8 L Ur Random Potassium (mmol/L) 19.3 Fraction Sodium Excret (<1% %) 0.1 Imaging/Other Studies: [id number] emboli, right upper lobe coalescence, new pulmonary nodules, ? Abnormal-appearing gallbladder CT-abdomen and pelvis-November 2017-consistent with colitis Doppler ultrasound-no DVT Assessment/Plan Assessment: 1. New pulmonary emboli-no obvious provocation. Patient needs a hypercoagulable workup as an outpatient. It is unclear if the findings on CAT scan of the chest represent new malignancy. Recommend- Discuss with pulmonary Consider PET scan as outpatient Laboratory evaluation for hypercoagulability as outpatient There is no clear-cut best choice of oral anticoagulants in this setting 2. Previous history of 2 lung cancers-as above Recommendations: .. Consult Acknowledgment - Thank you for your consult request.
--- NOTE | 2018-06-26 07:42 | PN- Housestaff ---
Subjective Follow-up For: Right lung lower lobe PE subsegmental and segmental. Acute bronchitis and possible pneumonia Hyponatremia Tele-Events Since Last Visit: Patient remained in sinus rhythm with heart rate between 6473 Subjective: No overnight events. Patient remained afebrile. Seen and examined this morning. Patient is on 50% high flow oxygen maintaining saturation 95%. Yesterday nocturnal patient respiratory status worsened and she has work of breathing she was on 3 L of oxygen and maintaining saturation 93% with labored breathing. She was started on high flow oxygen and she felt better. Patient reported that her condition has been improved. She reported cough and bringing phlegm. Review of Systems Constitutional: Denies: chills, fever. EENTM: Reports: no symptoms. Cardiovascular: Denies: chest pain, palpitations, syncope. Respiratory: Reports: cough, sputum production. Denies: short of breath. Gastrointestinal: Denies: abdominal pain, constipation, diarrhea, nausea, vomiting. Genitourinary: Reports: no symptoms. Musculoskeletal: Reports: no symptoms. Neurological/Psychological: Reports: see HPI. Objective Last 24 Hrs of Vital Signs/I&O Vital Signs Date Time Temp Pulse Resp B/P B/P Pulse O2 O2 Flow FiO2 Mean Ox Delivery Rate 06/26 0644 97.6 75 20 110/44 95 Nasal Cannula 06/26 0255 95 Nasal 50% Cannula 06/26 0000 96 Nasal 50% Cannula 06/25 2233 95 Nasal 50% Cannula 06/25 2150 97.4 75 20 96/60 97 CPAP 06/25 2017 97 Nasal 50% Cannula 06/25 1600 94 Nasal 40% Cannula 06/25 1453 96.9 62 20 110/80 94 Nasal Cannula 06/25 1025 Nasal 3.0L Cannula 06/25 0811 Nasal 3.0L Cannula Intake & Output 06/26 0800 06/26 0000 06/25 1600 Intake Total 68.8 100 500 Output Total 125 Balance 68.8 -25 500 Intake, IV 68.8 100 Intake, Oral 100 400 Output, Urine 125 Physical Exam General Appearance: Alert, Oriented X3, Cooperative Skin Temp/Moisture Exam: Warm/Dry Sepsis Skin Exam (color): Normal for Ethnicity HEENT: Atraumatic, PERRLA, EOMI Neck: Supple Cardiovascular: Normal S1, Normal S2 Lungs: crackles on right lung Abdomen: Soft, No Tenderness Neurological: Normal Speech, Strength at 5/5 X4 Ext, Normal Tone Extremities: b/l grade 1 pedal edema Assessment/Plan Assessment: 82 YO F with past medical history of non-small cell lung cancer status post left pneumonectomy, hyperlipidemia, GERD, hypertension came in with chief complaint of worsening shortness of breath 2-3 weeks prior to presentation. Patient reported that she is recently diagnosed with cancer in the right lung. Being seen on telemetry floor for following problems. Acute on chronic hypoxic respiratory failure due to right lung lower lobe subsegmental and segmental PE: -Possibly due to PE and acute bronchitis. Patient was on 2 L of oxygen after her pneumonectomy as she was not able maintain her saturation after pneumonectomy. -Patient has history of non-small cell lung cancer with chemo status post left pneumonectomy and right adenocarcinoma status post radiotherapy. -Patient reported shortness of breath for last couple of days. CTA showed right lung lower lobe segmental and subsegmental PE. -Continue IV heparin for anticoagulation. We will change her to oral anticoagulation before discharge. -Patient is on 50% high flow oxygen and maintaining saturation 95%. -Her troponins remain negative for any strain on right heart. -Follow-up echocardiogram results. -Lower extremity Doppler studies negative for DVT. -Her chest x-ray showed stable trace amount of right-sided pleural effusion without any congestion in the right leg. -Follow-up swallow evaluation as patient is complaining of difficulty in swallowing the pills. -Patient will get outpatient hypercoagulability workup and possible PET scan as outpatient. Per oncology there is no clear-cut best choice for oral anticoagulation at this point considering her lung cancer in the past. -Follow-up pulmonary recommendations. Acute bronchitis and acute COPD exacerbation: -Patient reported cough with yellow colored sputum the last couple of days. Patient is afebrile and her WBC count is within normal limits. -Possibly patient has acute bronchitis. -Follow-up sputum cultures -Continue azithromycin 500 mg daily, day 2 -Continue ceftriaxone empirically to cover for typical pneumonia. If patient remained afebrile and her WBC count remained within normal limits with negative sputum culture we will discontinue. day 2 -Continue Solu-Medrol 40 mg every 12 hourly -Continue TRC nebulization as needed. -Strep and Legionella antigen remained negative. Hyponatremia: -Could be hypovolemic hyponatremia and we will rule out SIAD that could be possibble due to pulmonary pathology. -Follow up urine lytes and osmolality. serum osmolality -Fluid restriction to 1200ml/day. -Today her Na was 130. History of hypertension hyperlipidemia: -Continue metoprolol and Lipitor History of GERD: -Continue omeprazole as needed DVT prophylaxis: Mechanical and patient is already on IV heparin CODE STATUS: DNR/intu Problem List: 1. Pulmonary embolism 2. Acute on chronic respiratory failure with hypoxia 3. Hyponatremia 4. Acute bronchitis Pain Ratin Pain Location: none Pain Goal: Remain pain free Pain Plan: pain pathway Tomorrow's Labs & Rationales: cbc/bep
[2018-06-26 07:59] LABS: ABSOLUTE BASOPHIL COUNT 0 /CUMM (0.0-0.2); ABSOLUTE EOSINOPHIL COUNT 0 /CUMM (0.0-0.7); ABSOLUTE GRANULOCYTE CT 5.7 /CUMM (1.4-6.5); ABSOLUTE LYMPH COUNT 0.3 /CUMM (1.2-3.4); ABSOLUTE MONOCYTE COUNT 0.1 /CUMM (0.10-0.60); BASOPHIL % 0 % (0.0-2.0); EOSINOPHIL % 0 % (0-5); GRANULOCYTE % 93.6 % (42.2-75.2); HEMATOCRIT 39.6 % (37-47); MEAN CORPUSCULAR HGB 28.2 PG (27.0-31.0); MEAN CORPUSCULAR HGB CONC 32.1 G/DL (33.0-37.0); MEAN CORPUSCULAR VOLUME 87.9 FL (81.0-99.0); MEAN PLATELET VOLUME 8.5 FL (7.4-10.4); PLATELET COUNT 257 /CUMM (130-400); RBC DISTRIBUTION WIDTH 16.1 % (11.5-14.5); RED BLOOD CELL CT 4.51 /CUMM (4.20-5.40)
[2018-06-26 09:08] LABS: WHITE BLOOD CELL COUNT 6.1 /CUMM (4.8-10.8)
--- NOTE | 2018-06-26 09:19 | PN- Pulmonary ---
Subjective HPI/Critical Care Issues: The patient is awake and alert. She remains on 50% high flow. She continues to have a cough, chest congestion, sputum production and exertional dyspnea. Overall since admission, however she feels improved. She is hemodynamically stable. There is no evidence of cardiovascular collapse in the setting of possible right heart strain. Objective Current Medications: Current Medications Sig/Christina Start time Last Medication Dose Route Stop Time Status Admin Acetaminophen 650 MG Q6P PRN 06/24 2030 AC PO Albuterol Sulfate 3 ML EVERY 4 HRS/AWAKE 06/25 1200 AC 06/26 INH 0827 Alprazolam 0.25 MG ONCE ONE 06/25 1530 DC 06/25 PO 06/25 1531 1537 Alprazolam 0 .STK-MED ONE 06/25 1529 DC PO Aspirin 81 MG DAILY 06/25 0900 AC 06/26 PO 0858 Atorvastatin Calcium 5 MG DAILY 06/25 0900 AC 06/26 PO 0858 Azithromycin 500 MG DAILY 06/25 1009 AC 06/26 Sodium Chloride 250 ML IV 0859 Ceftriaxone Sodium 1,000 MG DAILY 06/25 1105 AC 06/26 IV 0858 Dorzolamide HCl 1 GTT BID 06/25 2100 AC 06/26 OPH 0900 Furosemide 0 .STK-MED ONE 06/25 1504 DC .ROUTE Furosemide 20 MG ONCE ONE 06/25 1500 DC 06/25 IV 06/25 1501 1506 Guaifenesin 10 ML Q6P PRN 06/25 2115 AC 06/26 PO 0906 Guaifenesin 600 MG Q12 06/25 1444 AC PO Guaifenesin/ 10 ML ONCE ONE 06/25 1445 CAN Dextromethorphan PO 06/25 1446 Heparin Sodium 25,000 UNIT Q24H 06/24 1915 AC 06/25 (Porcine) IV 2205 Sodium Chloride 500 ML Latanoprost 1 GTT QPM 06/25 2100 AC 06/25 OPH 2152 Magnesium Oxide 400 MG ONE ONE 06/25 1300 DC 06/25 PO 06/25 1301 1426 Methylprednisolone 40 MG Q12 06/25 1105 AC 06/26 IV 0858 Metoprolol Tartrate 100 MG DAILY 06/25 0900 AC 06/25 PO 0758 Oxycodone HCl 5 MG Q6PRN PRN 06/24 2045 AC PO Oxycodone/ 2 TAB Q6P PRN 09/11 2030 AC Acetaminophen PO Timolol Maleate 1 GTT BID 06/25 2100 AC 06/26 OPH 0900 Vital Signs & I&O Last 24 Hrs of Vitals and I&O: Vital Signs Date Time Temp Pulse Resp B/P B/P Pulse O2 O2 Flow FiO2 Mean Ox Delivery Rate 06/26 0829 94 Nasal 50% Cannula 06/26 0644 97.6 75 20 110/44 95 Nasal Cannula 06/26 0255 95 Nasal 50% Cannula 06/26 0000 96 Nasal 50% Cannula 06/25 2233 95 Nasal 50% Cannula 06/25 2150 97.4 75 20 96/60 97 CPAP 06/25 2017 97 Nasal 50% Cannula 06/25 1600 94 Nasal 40% Cannula 06/25 1453 96.9 62 20 110/80 94 Nasal Cannula 06/25 1025 Nasal 3.0L Cannula Intake & Output 06/26 1600 06/26 0800 06/26 0000 Intake Total 68.8 100 Output Total 125 Balance 68.8 -25 Intake, IV 68.8 Intake, Oral 100 Output, Urine 125 Physical Exam General Appearance: alert, awake, anxious, mild distress Head: atraumatic Neck: supple Respiratory: rhonchi, wheezing Cardiovascular: regular rate/rhythm Gastrointestinal: normal bowel sounds, soft, non-tender Extremities: no edema Skin: intact, normal color, warm/dry Results Last 24 Hrs of Lab Results: Laboratory Tests 06/26/18 0621: Anion Gap 10, Estimated GFR 43 L, BUN/Creatinine Ratio 26.7 H, Magnesium 1.9, CBC w Diff NO MAN DIFF REQ, RBC 4.51, MCV 87.9, MCH 28.2, MCHC 32.1 L, RDW 16.1 H, MPV 8.5, Gran % 93.6 H, Lymphocytes % 5.4 L, Monocytes % 1.0 L, Eosinophils % 0, Basophils % 0, Absolute Granulocytes 5.7, Absolute Lymphocytes 0.3 L, Absolute Monocytes 0.1, Absolute Eosinophils 0, Absolute Basophils 0 06/26/18 0445: APTT 73 H 06/25/18 2035: APTT 93 H 06/25/18 1159: APTT > 120 *H Impression/Plan Impression/Plan Impression/Plan: 1. Pulmonary emboli RLL segmental and subsegmental pulmonary arteries to the medial basal and posterior basal segments. Possible associated secondary right heart strain. This appears to be unprovoked. 2. Pneumonia. 3. AECOPD. 4. Lung cancer, s/p left pneumonectomy, without evidence or recurrent malignancy. 5. Hypoxemic respiratory failure. 6. Hyperkalemia. 7. Acute kidney injury. Recommendations: * Follow up cultures. * Continue ceftriaxone and azithro. * Solumedrol 40 mg IV BID -to continue. * Check echocardiogram, rule out right heart strain. * Continue heparin for theraputic PTT. Will consider switch to oral anticoagulants. * Ensure stool is guaic negative. * Oncology consult reviewed -agree with outpatient PET scan. * Continue nebs/TRC - discussed with respiratory. * O2 for saturations > 92% at rest. * Out of bed to chair daily. * Continue all supportive care.
--- NOTE | 2018-06-26 12:25 | PN- Att Addend ---
Attending Addendum Attending Brief Note Patient is a little better today. The daughter at the bedside. Patient has been on high flow oxygen, was given some diuretic last evening. Respiratory therapist trying to wean oxygen down to 5 L. Patient was seen by pulmonary and by oncology. 1 blood pressure 90/60 after that a little better. Patient has no signs or symptoms of hypotension. No major changes on physical. Will follow recommendations of the specialist. Probably work her up for hypercoagulable state because the PE was non-provoked. Also consider doing a PET scan to see if that P could be related to malignancy. Intake & Output 06/26 0400 Intake Total 68.8 100 652 0 Output Total 125 Balance 68.8 -25 652 0 Intake, IV 68.8 252 Intake, Oral 100 400 0 Output, Urine 125 Patient 125 lb 120 lb Weight Weight Bed scale Measurement Method Laboratory Tests 06/26/18 1200: Sodium Pending, Potassium Pending, Chloride Pending, Carbon Dioxide Pending, Anion Gap Pending, BUN Pending, Creatinine Pending, BUN/Creatinine Ratio Pending 06/26/18 0621: Anion Gap 10, Estimated GFR 43 L, BUN/Creatinine Ratio 26.7 H, Magnesium 1.9, CBC w Diff NO MAN DIFF REQ, RBC 4.51, MCV 87.9, MCH 28.2, MCHC 32.1 L, RDW 16.1 H, MPV 8.5, Gran % 93.6 H, Lymphocytes % 5.4 L, Monocytes % 1.0 L, Eosinophils % 0, Basophils % 0, Absolute Granulocytes 5.7, Absolute Lymphocytes 0.3 L, Absolute Monocytes 0.1, Absolute Eosinophils 0, Absolute Basophils 0 06/26/18 0445: APTT 73 H 06/25/18 2035: APTT 93 H 06/25/18 1159: APTT > 120 *H 06/25/18 0617: Anion Gap 7, Estimated GFR > 60, BUN/Creatinine Ratio 35.0 H, Magnesium 1.8, Troponin I 0.02, CBC w Diff NO MAN DIFF REQ, RBC 4.66, MCV 87.4, MCH 28.6, MCHC 32.7 L, RDW 16.0 H, MPV 8.6, Gran % 73.6, Lymphocytes % 9.6 L, Monocytes % 12.6 H, Eosinophils % 3.5, Basophils % 0.7, Absolute Granulocytes 5.0, Absolute Lymphocytes 0.6 L, Absolute Monocytes 0.8 H, Absolute Eosinophils 0.2, Absolute Basophils 0 06/25/18 0500: Urine Color YEL, Urine Clarity CLEAR, Urine pH 6.0, Ur Specific [place] 1.010, Urine Protein 30 H, Urine Ketones NEG, Urine Nitrite NEG, Urine Bilirubin NEG, Urine Urobilinogen 0.2, Ur Leukocyte Esterase NEG, Ur Microscopic SEDIMENT EXAMINED, Urine WBC RARE, Ur Epithelial Cells RARE, Urine Hemoglobin NEG, Urine Glucose NEG 06/25/18 0500: Urine Osmolality 365, Ur Random Creatinine 50.9, Ur Random Sodium 8 L, Ur Random Potassium 19.3, Fraction Sodium Excret 0.1 06/25/18 0200: APTT > 120 *H 06/24/18 2235: Serum Osmolality 294, Troponin I 0.02 06/24/18 1610: Anion Gap 10, Estimated GFR > 60, BUN/Creatinine Ratio 36.3 H, Glucose 130 H, Calcium 8.7, Total Bilirubin 0.6, AST 54 H, ALT 60 H, Alkaline Phosphatase 126 , Troponin I 0.01, Vit-I-Ftrepsnmvjy Pept 5020 H, Total Protein 6.1 L, Albumin 3.6, Globulin 2.5, Albumin/Globulin Ratio 1.4, PT 12.9 H, INR 1.18, APTT 25, D- Dimer High Sensitivty 948 H, CBC w Diff NO MAN DIFF REQ, RBC 5.01, MCV 87.4, MCH 28.2, MCHC 32.3 L, RDW 16.1 H, MPV 8.5, Gran % 82.2 H, Lymphocytes % 7.8 L, Monocytes % 6.6, Eosinophils % 3.3, Basophils % 0.1, Absolute Granulocytes 6.3, Absolute Lymphocytes 0.6 L, Absolute Monocytes 0.5, Absolute Eosinophils 0.3, Absolute Basophils 0 Microbiology 06/25 2350 BLOOD: Blood Culture - RECD 06/25 2210 BLOOD: Blood Culture - RECD 06/25 2120 URINE ROUT: Legionella Antigen - COMP 06/25 2120 URINE ROUT: Streptococcus pneumoniae Antigen (M - COMP 06/25 2120 URINE ROUT: Urine Culture - RES 06/25 1400 LOWER RESP: Respiratory Culture - RES 06/25 1400 LOWER RESP: Gram Stain - RES Microbiology 06/25 2350 BLOOD: Blood Culture - RECD 06/25 2210 BLOOD: Blood Culture - RECD 06/25 2120 URINE ROUT: Legionella Antigen - COMP 06/25 2120 URINE ROUT: Streptococcus pneumoniae Antigen (M - COMP 06/25 2120 URINE ROUT: Urine Culture - RES 06/25 1400 LOWER RESP: Respiratory Culture - RES 06/25 1400 LOWER RESP: Gram Stain - RES Vital Signs Date Time Temp Pulse Resp B/P B/P Pulse O2 O2 Flow FiO2 Mean Ox Delivery Rate 06/26 1144 98 Nasal 50% Cannula 06/26 0829 94 Nasal 50% Cannula 06/26 0644 97.6 75 20 110/44 95 Nasal Cannula 06/26 0255 95 Nasal 50% Cannula 06/26 0000 96 Nasal 50% Cannula 06/25 2233 95 Nasal 50% Cannula 06/25 2150 97.4 75 20 96/60 97 CPAP 06/25 2017 97 Nasal 50% Cannula 06/25 1600 94 Nasal 40% Cannula 06/25 1453 96.9 62 20 110/80 94 Nasal Cannula
[2018-06-26 12:50] VITALS: BP 96/52
[2018-06-26 22:39] VITALS: BP 120/76
--- NOTE | 2018-06-27 07:11 | PN- Housestaff ---
Subjective Follow-up For: Right lung lower lobe PE subsegmental and segmental. Acute COPD exacerbation due to acute broncitis and CAP. Hyponatremia REMEDIOS Tele-Events Since Last Visit: Patient remained in sinus rhythm with heart rate between 7481 Subjective: No overnight events. Patient remained afebrile. Seen and examined this morning. She is using 3 L of oxygen and maintaining saturation 97%. Patient reported that she is feeling better. She denied chest pain, palpitation, nausea , vomiting, chill, fever, abdominal pain dysuria. We will walk around her today with PT and check her sats. Patient reported cough and bringing some phlegm. Review of Systems Constitutional: Denies: chills, fever. EENTM: Reports: no symptoms. Cardiovascular: Denies: chest pain, palpitations, syncope. Respiratory: Reports: cough, sputum production. Denies: short of breath. Gastrointestinal: Denies: abdominal pain, bloating, constipation, diarrhea, nausea, vomiting. Genitourinary: Reports: no symptoms. Musculoskeletal: Reports: no symptoms. Neurological/Psychological: Reports: no symptoms. Objective Last 24 Hrs of Vital Signs/I&O Vital Signs Date Time Temp Pulse Resp B/P B/P Pulse O2 O2 Flow FiO2 Mean Ox Delivery Rate 06/27 0826 96 Nasal 3.0L Cannula 06/27 0716 97.8 76 18 152/84 97 Nasal Cannula 06/26 2239 98.2 78 18 120/76 97 Nasal Cannula 06/26 2026 Nasal 3.0L Cannula 06/26 1906 84 97 Nasal 4.0L Cannula 06/26 1630 97 Nasal 5.0L Cannula 06/26 1600 97 Nasal 4.0L Cannula 06/26 1250 73 96/52 06/26 1144 98 Nasal 50% Cannula 06/26 0900 73 96/52 Intake & Output 06/27 1600 06/27 0800 06/27 0000 Intake Total 200 Output Total 500 450 Balance -500 -250 Intake, Oral 200 Output, Urine 500 450 Patient 128 lb Weight Weight Bed scale Measurement Method Physical Exam General Appearance: Alert, Oriented X3, Cooperative Skin Temp/Moisture Exam: Warm/Dry Sepsis Skin Exam (color): Normal for Ethnicity HEENT: Atraumatic, PERRLA, EOMI Neck: Supple Cardiovascular: Normal S1, Normal S2 Lungs: Clear to Auscultation Abdomen: Soft, No Tenderness Neurological: Normal Speech, Strength at 5/5 X4 Ext, Normal Tone Extremities: b/l pedal edema Assessment/Plan Assessment: 82 YO F with past medical history of non-small cell lung cancer status post left pneumonectomy, hyperlipidemia, GERD, hypertension came in with chief complaint of worsening shortness of breath 2-3 weeks prior to presentation. Patient reported that she is recently diagnosed with cancer in the right lung. Being seen on telemetry floor for following problems. Acute on chronic hypoxic respiratory failure due to right lung lower lobe subsegmental and segmental PE: -Possibly due to PE, copd exacerbation due to acute bronchitis. Patient was on 2 L of oxygen after her pneumonectomy as she was not able maintain her saturation after pneumonectomy. -Patient has history of non-small cell lung cancer with chemo status post left pneumonectomy and right adenocarcinoma status post radiotherapy. -Patient reported shortness of breath for last couple of days. CTA showed right lung lower lobe segmental and subsegmental PE. -Patient was started on 10 mg Eliquis twice daily for 7 days and then she will take 5 mg twice daily. -Her high flow oxygen was weaned off now patient is on 3 L of oxygen and maintaining saturation 95%. -Her troponins remain negative for any strain on right heart. -Follow-up echocardiogram results. -Lower extremity Doppler studies negative for DVT. -Her chest x-ray showed stable trace amount of right-sided pleural effusion without any congestion in the right leg. -Speech therapist recommended regular diet with thin liquids. -Patient will get outpatient hypercoagulability workup and possible PET scan as outpatient. Per oncology there is no clear-cut best choice for oral anticoagulation at this point considering her lung cancer in the past. -Follow-up pulmonary recommendations. Acute COPD exacerbation due to acute bronchitis and CAP: -Patient reported cough with yellow colored sputum the last couple of days. Patient is afebrile and her WBC count is within normal limits. -Possibly patient has acute bronchitis. -Her blood, urine and sputum cultures remain negative so far. -Continue azithromycin 500 mg daily, day 3 -Continue ceftriaxone empirically to cover for typical pneumonia. If patient remained afebrile and her WBC count remained within normal limits with negative sputum culture we will discontinue. day 3 -Continue Solu-Medrol 40 mg every 12 hourly -Continue TRC nebulization as needed. -Strep and Legionella antigen remained negative. Hyponatremia: -Less likely due to SIADH as it did not respond to fluid restriction. Most likely due to dehydration. -Her serum osmolality is 294 and urine osmolality is 365. Her random urine excretion of sodium is 8. -Fluid restriction to 1500ml/day. -Today her sodium level is 133. Acute kidney injury: -Possibly due to dehydration and one-time use of small dose of Lasix. -Her creatinine is 1.2 and GFR is 43. -We will encourage patient to drink orally. -We will follow-up kidney function. History of hypertension hyperlipidemia: -Continue metoprolol and Lipitor History of GERD: -Continue omeprazole as needed DVT prophylaxis: Mechanical and patient is already on Eliquis. CODE STATUS: DNR/intu Problem List: 1. Pulmonary embolism 2. Acute on chronic respiratory failure with hypoxia 3. Acute bronchitis Pain Ratin Pain Location: none Pain Goal: Remain pain free Pain Plan: pain pathway Tomorrow's Labs & Rationales: cbc/bep
--- NOTE | 2018-06-27 07:14 | Discharge Summary ---
Visit Information Visit Dates Admission Date: 06/24/18 Hospital Course Course Attending Physician: Gabe Drake MD Primary Care Physician: Gabe Drake MD Complications: None Allergies: Coded Allergies: No Known Allergies (06/24/18) managed her for the following conditions. Pulmonary embolism Patient with history of cancer presenting with shortness of breath and pulmonary embolism. She was started on heparin drip. Required oxygen at some point high flow at 50% but then continued improving and decreased oxygen requirement. Patient was changed to Eliquis 10 mg twice daily for 1 week to be decreased to 5 mg twice daily for this what appears to be unprovoked PE. Patient has family history of blood clots and will need to follow-up for a workup of hypercoagulable state as an outpatient with Dr. Moffett. Bronchitis/pneumonia/COPD exacerbation Patient reported cough with phlegm production and had no evidence of pneumonia on imaging. However given increased in phlegm production and yellowish in color the patient was started on both azithromycin and ceftriaxone. She improved with decrease in phlegm production and improvement in aeration. She will be discharged on azithromycin to complete 5 days of antibiotic. Hyponatremia Considered to be less likely due to SIADH as the patient did not respond to fluid restriction. She had random urine excretion of 8. Sodium level improved gradually during the course of the stay from 129-133. She was not started on salt tablets. She should follow her BP 1 week after discharge and consider starting salt tablets if continued to be hyponatremic. Acute kidney injury At baseline the patient has normal renal function however on presentation had creatinine of 1.2 and a GFR of 43. She was gently hydrated as she had fluid restriction and renal function remained within the same parameters. She will need a follow-up of her renal function within 1 week after discharge for subsequent management as outpatient. Complications: None Allergies: Coded Allergies: No Known Allergies (06/24/18)
[2018-06-27 07:16] VITALS: BP 152/84
[2018-06-27 07:46] LABS: ABSOLUTE BASOPHIL COUNT 0 /CUMM (0.0-0.2); ABSOLUTE EOSINOPHIL COUNT 0 /CUMM (0.0-0.7); BASOPHIL % 0 % (0.0-2.0); EOSINOPHIL % 0 % (0-5); MEAN CORPUSCULAR HGB 28.3 PG (27.0-31.0)
[2018-06-27 08:02] LABS: ABSOLUTE GRANULOCYTE CT 8.8 /CUMM (1.4-6.5); ABSOLUTE LYMPH COUNT 0.3 /CUMM (1.2-3.4); ABSOLUTE MONOCYTE COUNT 0.3 /CUMM (0.10-0.60); HEMATOCRIT 39.7 % (37-47); MEAN CORPUSCULAR HGB CONC 32.3 G/DL (33.0-37.0); MEAN CORPUSCULAR VOLUME 87.6 FL (81.0-99.0); MEAN PLATELET VOLUME 8.3 FL (7.4-10.4); PLATELET COUNT 250 /CUMM (130-400); RBC DISTRIBUTION WIDTH 16.3 % (11.5-14.5); RED BLOOD CELL CT 4.53 /CUMM (4.20-5.40)
[2018-06-27 08:04] LABS: WHITE BLOOD CELL COUNT 9.4 /CUMM (4.8-10.8)
[2018-06-27 08:51] LABS: GRANULOCYTE % 94.3 % (42.2-75.2)
--- NOTE | 2018-06-27 10:53 | PN- Att Addend ---
Attending Addendum Attending Brief Note Patient in bed having an echocardiogram done at this time. Patient offers no new complaints. She is down to 3 L of nasal oxygen and ambulated a little. Was started on oral anticoagulation to bridge her. Patient still on IV steroids and IV antibiotics. Appreciate Dr. Thurman's input and recommendations. Vital signs are stable no fever. Last white count 9400 No major changes on physical. Will continue treatment as per pulmonary's recommendations. Intake & Output 06/27 1600 06/27 0400 06/26 1600 06/26 0400 06/25 1600 06/25 0400 Intake Total 200 914.6 100 652 0 Output Total 500 450 300 125 Balance -500 -250 614.6 -25 652 0 Intake, IV 434.6 252 Intake, Oral 200 480 100 400 0 Output, Urine 500 450 300 125 Patient 128 lb 125 lb 120 lb Weight Weight Bed scale Bed scale Measurement Method Current Medications Sig/Christina Start time Last Medication Dose Route Stop Time Status Admin Acetaminophen 650 MG Q6P PRN 06/24 2030 AC PO Albuterol Sulfate 3 ML EVERY 4 HRS/AWAKE 06/25 1200 AC 06/27 INH 0824 Apixaban 10 MG BID 06/26 1530 AC 06/27 PO 07/03 0901 0859 Aspirin 81 MG DAILY 06/25 0900 AC 06/27 PO 0858 Atorvastatin Calcium 5 MG DAILY 06/25 0900 AC 06/27 PO 0859 Azithromycin 500 MG DAILY 06/25 1009 AC 06/26 Sodium Chloride 250 ML IV 0859 Ceftriaxone Sodium 1,000 MG DAILY 06/25 1105 AC 06/27 IV 0901 Dorzolamide HCl 1 GTT BID 06/25 2100 AC 06/27 OPH 0857 Guaifenesin 10 ML Q6P PRN 06/25 2115 AC 06/27 PO 0858 Guaifenesin 600 MG Q12 06/25 1444 AC PO Heparin Sodium 25,000 UNIT Q24H 06/24 1915 DC 06/25 (Porcine) IV 2205 Sodium Chloride 500 ML Latanoprost 1 GTT QPM 06/25 2100 AC 06/26 OPH 2047 Methylprednisolone 40 MG Q12 06/25 1105 AC 06/27 IV 0900 Metoprolol Tartrate 100 MG DAILY 06/25 0900 AC 06/27 PO 0858 Oxycodone HCl 5 MG Q6PRN PRN 06/24 2045 AC PO Oxycodone/ 2 TAB Q6P PRN 06/24 2030 AC Acetaminophen PO Patient Medication 1 ED ONE ONE 06/27 0915 DC Teaching ED 06/27 0916 Sodium Polystyrene 60 ML ONCE ONE 06/27 1000 DC Sulfonate PO 06/27 1001 Timolol Maleate 1 GTT BID 06/25 2100 AC 06/27 OPH 0856 Laboratory Tests 06/27/18 0607: Anion Gap 8, Estimated GFR 43 L, BUN/Creatinine Ratio 32.5 H, CBC w Diff NO MAN DIFF REQ, RBC 4.53, MCV 87.6, MCH 28.3, MCHC 32.3 L, RDW 16.3 H, MPV 8.3, Gran % 94.3 H, Lymphocytes % 3.0 L, Monocytes % 2.7, Eosinophils % 0, Basophils % 0, Absolute Granulocytes 8.8 H, Absolute Lymphocytes 0.3 L, Absolute Monocytes 0.3, Absolute Eosinophils 0, Absolute Basophils 0 06/26/18 1800: APTT Cancelled 06/26/18 1645: APTT Cancelled 06/26/18 1200: Anion Gap 9, Estimated GFR 43 L, BUN/Creatinine Ratio 29.2 H 06/26/18 0621: Anion Gap 10, Estimated GFR 43 L, BUN/Creatinine Ratio 26.7 H, Magnesium 1.9, CBC w Diff NO MAN DIFF REQ, RBC 4.51, MCV 87.9, MCH 28.2, MCHC 32.1 L, RDW 16.1 H, MPV 8.5, Gran % 93.6 H, Lymphocytes % 5.4 L, Monocytes % 1.0 L, Eosinophils % 0, Basophils % 0, Absolute Granulocytes 5.7, Absolute Lymphocytes 0.3 L, Absolute Monocytes 0.1, Absolute Eosinophils 0, Absolute Basophils 0 06/26/18 0445: APTT 73 H 06/25/18 2035: APTT 93 H 06/25/18 1159: APTT > 120 *H 06/25/18 0617: Anion Gap 7, Estimated GFR > 60, BUN/Creatinine Ratio 35.0 H, Magnesium 1.8, Troponin I 0.02, CBC w Diff NO MAN DIFF REQ, RBC 4.66, MCV 87.4, MCH 28.6, MCHC 32.7 L, RDW 16.0 H, MPV 8.6, Gran % 73.6, Lymphocytes % 9.6 L, Monocytes % 12.6 H, Eosinophils % 3.5, Basophils % 0.7, Absolute Granulocytes 5.0, Absolute Lymphocytes 0.6 L, Absolute Monocytes 0.8 H, Absolute Eosinophils 0.2, Absolute Basophils 0 06/25/18 0500: Urine Color YEL, Urine Clarity CLEAR, Urine pH 6.0, Ur Specific [place] 1.010, Urine Protein 30 H, Urine Ketones NEG, Urine Nitrite NEG, Urine Bilirubin NEG, Urine Urobilinogen 0.2, Ur Leukocyte Esterase NEG, Ur Microscopic SEDIMENT EXAMINED, Urine WBC RARE, Ur Epithelial Cells RARE, Urine Hemoglobin NEG, Urine Glucose NEG 06/25/18 0500: Urine Osmolality 365, Ur Random Creatinine 50.9, Ur Random Sodium 8 L, Ur Random Potassium 19.3, Fraction Sodium Excret 0.1 06/25/18 0200: APTT > 120 *H 06/24/18 2235: Serum Osmolality 294, Troponin I 0.02 06/24/18 1610: Anion Gap 10, Estimated GFR > 60, BUN/Creatinine Ratio 36.3 H, Glucose 130 H, Calcium 8.7, Total Bilirubin 0.6, AST 54 H, ALT 60 H, Alkaline Phosphatase 126 , Troponin I 0.01, [id number]-C-Ikcvxezzyix Pept 5020 H, Total Protein 6.1 L, Albumin 3.6, Globulin 2.5, Albumin/Globulin Ratio 1.4, PT 12.9 H, INR 1.18, APTT 25, D- Dimer High Sensitivty 948 H, CBC w Diff NO MAN DIFF REQ, RBC 5.01, MCV 87.4, MCH 28.2, MCHC 32.3 L, RDW 16.1 H, MPV 8.5, Gran % 82.2 H, Lymphocytes % 7.8 L, Monocytes % 6.6, Eosinophils % 3.3, Basophils % 0.1, Absolute Granulocytes 6.3, Absolute Lymphocytes 0.6 L, Absolute Monocytes 0.5, Absolute Eosinophils 0.3, Absolute Basophils 0 Microbiology 06/25 2350 BLOOD: Blood Culture - RES 06/25 2210 BLOOD: Blood Culture - RES 06/25 2120 URINE ROUT: Legionella Antigen - COMP 06/25 2120 URINE ROUT: Streptococcus pneumoniae Antigen (M - COMP 06/25 2120 URINE ROUT: Urine Culture - RES 06/25 1400 LOWER RESP: Respiratory Culture - COMP 06/25 1400 LOWER RESP: Gram Stain - COMP Microbiology 06/25 2350 BLOOD: Blood Culture - RES 06/25 2210 BLOOD: Blood Culture - RES 06/25 2120 URINE ROUT: Legionella Antigen - COMP 06/25 2120 URINE ROUT: Streptococcus pneumoniae Antigen (M - COMP 06/25 2120 URINE ROUT: Urine Culture - RES 06/25 1400 LOWER RESP: Respiratory Culture - COMP 06/25 1400 LOWER RESP: Gram Stain - COMP Vital Signs Date Time Temp Pulse Resp B/P B/P Pulse O2 O2 Flow FiO2 Mean Ox Delivery Rate 06/27 0858 76 152/84 06/27 0826 96 Nasal 3.0L Cannula 06/27 0716 97.8 76 18 152/84 97 Nasal Cannula 06/26 2239 98.2 78 18 120/76 97 Nasal Cannula 06/26 2026 Nasal 3.0L Cannula 06/26 1906 84 97 Nasal 4.0L Cannula 06/26 1630 97 Nasal 5.0L Cannula 06/26 1600 97 Nasal 4.0L Cannula 06/26 1250 73 96/52 06/26 1144 98 Nasal 50% Cannula Monitor the potassium that is slightly elevated.
--- NOTE | 2018-06-27 14:31 | PN- Pulmonary ---
Subjective HPI/Critical Care Issues: The patient is awake and alert. She is feeling much improved and she is now off high flow. The patient continues to have a cough, chest congestion and wheezing. She offers no new complaints. Objective Current Medications: Current Medications Sig/Christina Start time Last Medication Dose Route Stop Time Status Admin Acetaminophen 650 MG Q6P PRN 06/24 2030 AC PO Albuterol Sulfate 3 ML EVERY 4 HRS/AWAKE 06/25 1200 AC 06/27 INH 0824 Apixaban 10 MG BID 06/26 1530 AC 06/27 PO 07/03 0901 0859 Aspirin 81 MG DAILY 06/25 0900 AC 06/27 PO 0858 Atorvastatin Calcium 5 MG DAILY 06/25 0900 AC 06/27 PO 0859 Azithromycin 500 MG DAILY 06/25 1009 AC 06/27 Sodium Chloride 250 ML IV 1057 Ceftriaxone Sodium 1,000 MG DAILY 06/25 1105 AC 06/27 IV 0901 Dorzolamide HCl 1 GTT BID 06/25 2100 AC 06/27 OPH 0857 Guaifenesin 10 ML Q6P PRN 06/25 2115 AC 06/27 PO 0858 Guaifenesin 600 MG Q12 06/25 1444 AC PO Heparin Sodium 25,000 UNIT Q24H 06/24 1915 DC 06/25 (Porcine) IV 2205 Sodium Chloride 500 ML Latanoprost 1 GTT QPM 06/25 2100 AC 06/26 OPH 2047 Methylprednisolone 40 MG Q12 06/25 1105 AC 06/27 IV 0900 Metoprolol Tartrate 100 MG DAILY 06/25 0900 AC 06/27 PO 0858 Oxycodone HCl 5 MG Q6PRN PRN 06/24 2045 AC PO Oxycodone/ 2 TAB Q6P PRN 06/24 2030 AC Acetaminophen PO Patient Medication 1 ED ONE ONE 06/27 0915 DC Teaching ED 06/27 0916 Sodium Polystyrene 60 ML ONCE ONE 06/27 1000 DC 06/27 Sulfonate PO 06/27 1001 1058 Timolol Maleate 1 GTT BID 06/25 2100 AC 06/27 OPH 0856 Vital Signs & I&O Last 24 Hrs of Vitals and I&O: Vital Signs Date Time Temp Pulse Resp B/P B/P Pulse O2 O2 Flow FiO2 Mean Ox Delivery Rate 06/27 0858 76 152/84 06/27 0826 96 Nasal 3.0L Cannula 06/27 0800 97 Nasal 3.0L Cannula 06/27 0716 97.8 76 18 152/84 97 Nasal Cannula 06/26 2239 98.2 78 18 120/76 97 Nasal Cannula 06/26 2026 Nasal 3.0L Cannula 06/26 1906 84 97 Nasal 4.0L Cannula 06/26 1630 97 Nasal 5.0L Cannula 06/26 1600 97 Nasal 4.0L Cannula Intake & Output 06/27 1600 06/27 0800 06/27 0000 Intake Total 670 200 Output Total 500 450 Balance 670 -500 -250 Intake, IV 270 Intake, Oral 400 200 Number 1 Bowel Movements Output, Urine 500 450 Patient 128 lb Weight Weight Bed scale Measurement Method Physical Exam General Appearance: alert, awake, anxious, mild distress Head: atraumatic Neck: supple Respiratory: rhonchi, wheezing Cardiovascular: regular rate/rhythm Gastrointestinal: normal bowel sounds, soft, non-tender Extremities: no edema Skin: intact, normal color, warm/dry Results Last 24 Hrs of Lab Results: Laboratory Tests 06/27/18 1300: Sodium Cancelled, Potassium Cancelled, Chloride Cancelled, Carbon Dioxide Cancelled, Anion Gap Cancelled, BUN Cancelled, Creatinine Cancelled, BUN/ Creatinine Ratio Cancelled 06/27/18 0607: Anion Gap 8, Estimated GFR 43 L, BUN/Creatinine Ratio 32.5 H, CBC w Diff NO MAN DIFF REQ, RBC 4.53, MCV 87.6, MCH 28.3, MCHC 32.3 L, RDW 16.3 H, MPV 8.3, Gran % 94.3 H, Lymphocytes % 3.0 L, Monocytes % 2.7, Eosinophils % 0, Basophils % 0, Absolute Granulocytes 8.8 H, Absolute Lymphocytes 0.3 L, Absolute Monocytes 0.3, Absolute Eosinophils 0, Absolute Basophils 0 06/26/18 1800: APTT Cancelled 06/26/18 1645: APTT Cancelled Impression/Plan Impression/Plan Impression/Plan: 1. Pulmonary emboli RLL segmental and subsegmental pulmonary arteries to the medial basal and posterior basal segments. Possible associated secondary right heart strain. This appears to be unprovoked. 2. Pneumonia. 3. AECOPD. 4. Lung cancer, s/p left pneumonectomy, without evidence or recurrent malignancy. 5. Hypoxemic respiratory failure. 6. Hyperkalemia. 7. Acute kidney injury. Recommendations: * Continue ceftriaxone and azithro. * Solumedrol 40 mg IV BID -to continue. * Continue Eliquis. * Ensure stool is guaic negative. * Oncology consult reviewed -agree with outpatient PET scan. * Continue nebs/TRC - discussed with respiratory. * O2 for saturations > 92% at rest. * Out of bed to chair daily. * Continue all supportive care.
[2018-06-27 14:32] VITALS: BP 114/70
[2018-06-27] MEDS ORDERED: ELIQUIS5 M1 PO (14:42)
--- NOTE | 2018-06-27 14:56 | Patient Discharge Instructions ---
Discharge Instructions General Discharge Information You were seen/treated for: Acute on chronic hypoxic respiratory failure due to unprovoked pulmonary embolism, COPD exacerbation and CAP. Acute COPD exacerbation due to CAP Acute kidney injury Hyponatremia Watch for these problems: Chest pain, palpitation, shortness of breath, cough, sputum, fever, chills, lightheadedness, blood in urine, blood in stool or excessive bleeding from any site and abdominal pain. If you experience any of these symptoms 3 come to ED or call to her primary care physician. Special Instructions: Follow-up with her primary care physician in 1 week Follow-up with your resolution rep in 1 week Follow-up with your oncologist in 1 week. Patient will follow oncology for workup of hypercoagulability and ask for duration of anticoagulation. Diet Recommended Diet: Regular Activity Activity Self Limited: Yes Acute Coronary Syndrome Inclusion Criteria At DC or during hospital stay patient has or had the following: ACS DIAGNOSIS No Discharge Core Measures Meds if any: Prescribed or Continued at Discharge Meds if any: NOT Prescribed or Continued at Discharge Congestive Heart Failure Inclusion Criteria At DC or during hospital stay patient has or had the following: CHF DIAGNOSIS No Discharge Core Measures Meds if any: Prescribed or Continued at Discharge Meds if any: NOT Prescribed or Continued at Discharge Cerebrovascular accident Inclusion Criteria At DC or during hospital stay patient has or had the following: CVA/TIA Diagnosis No Discharge Core Measures Meds if any: Prescribed or Continued at Discharge Meds if any: NOT Prescribed or Continued at Discharge Venous thromboembolism Inclusion Criteria VTE Diagnosis Yes VTE Type Pulmonary Embolism VTE Confirmed by (Test) CT CHEST ANGIOGRAM Discharge Core Measures - Per Current guidelines, there needs to be overlap - treatment for the first 5 days of Warfarin therapy. - If discharged on Warfarin prior to 5 days of - overlap therapy, the patient will need to be - assessed for post discharge needs including - *Post discharge parental anticoagulation - *Warfarin and/or parental anticoagulation education - *Follow up date to check INR post discharge At least 5 days overlap therapy as Inpatient No Meds if any: Prescribed or Continued at Discharge Note: Overlap Therapy is Warfarin and Anticoagulant Meds if any: NOT Prescribed or Continued at Discharge No Warfarin d/t Prescribed other Anticoag
[2018-06-27 22:22] VITALS: BP 128/84
[2018-06-28 07:13] VITALS: BP 132/78
--- NOTE | 2018-06-28 07:21 | PN- Housestaff ---
[facility]: Subjective Follow-up For: Right lung lower lobe PE subsegmental and segmental. Acute COPD exacerbation due to acute broncitis and CAP. Hyponatremia REMEDIOS Tele-Events Since Last Visit: Patient remained in sinus rhythm with heart rate between 7882 with PACs Subjective: No overnight events. Patient remained afebrile. Seen and examined this morning. She denied chest pain, palpation, nausea, vomiting, chill, fever, abdominal pain dysuria. Patient reported having cough and she is bringing mucus. Overall patient is feeling much improved. She reported that she walked yesterday and feeling short of breath at the end of her walk. Review of Systems Constitutional: Denies: chills, fever. EENTM: Reports: no symptoms. Cardiovascular: Denies: chest pain, palpitations, syncope. Respiratory: Reports: cough, sputum production. Denies: short of breath, wheezing. Gastrointestinal: Denies: abdominal pain, constipation, diarrhea, nausea, vomiting. Genitourinary: Reports: no symptoms. Neurological/Psychological: Reports: no symptoms. Objective Last 24 Hrs of Vital Signs/I&O Vital Signs Date Time Temp Pulse Resp B/P B/P Pulse O2 O2 Flow FiO2 Mean Ox Delivery Rate 06/28 0713 97.4 81 18 132/78 96 Nasal Cannula 06/28 0000 98 Nasal 3.0L Cannula 06/27 2222 96.8 72 18 128/84 98 Nasal 3.0L Cannula 06/27 1720 98 Nasal 3.0L Cannula 06/27 1600 Nasal 3.0L Cannula 06/27 1432 97.6 70 20 114/70 98 Nasal 3.0L Cannula 06/27 0858 76 152/84 06/27 0826 96 Nasal 3.0L Cannula 06/27 0800 97 Nasal 3.0L Cannula Intake & Output 06/28 0800 06/28 0000 06/27 1600 Intake Total 350 670 Output Total 450 Balance -100 670 Intake, IV 270 Intake, Oral 350 400 Number 4 1 Bowel Movements Output, Urine 450 Patient 124 lb Weight Weight Bed scale Measurement Method Physical Exam General Appearance: Alert, Oriented X3, Cooperative Skin Temp/Moisture Exam: Warm/Dry Sepsis Skin Exam (color): Normal for Ethnicity HEENT: Atraumatic, PERRLA, EOMI Neck: Supple Cardiovascular: Normal S1, Normal S2 Lungs: course crakles cleared with cough Abdomen: Soft, No Tenderness Neurological: Normal Speech, Strength at 5/5 X4 Ext, Normal Tone Extremities: b/l pedal edema Assessment/Plan Assessment: 82 YO F with past medical history of non-small cell lung cancer status post left pneumonectomy, hyperlipidemia, GERD, hypertension came in with chief complaint of worsening shortness of breath 2-3 weeks prior to presentation. Patient reported that she is recently diagnosed with cancer in the right lung. Being seen on telemetry floor for following problems. Acute on chronic hypoxic respiratory failure due to right lung lower lobe subsegmental and segmental PE: -Possibly due to PE, copd exacerbation due to acute bronchitis. Patient was on 2 L of oxygen after her pneumonectomy as she was not able maintain her saturation after pneumonectomy. -Patient has history of non-small cell lung cancer with chemo status post left pneumonectomy and right adenocarcinoma status post radiotherapy. -Patient reported shortness of breath for last couple of days. CTA showed right lung lower lobe segmental and subsegmental PE. -Patient was started on 10 mg Eliquis twice daily for 7 days and then she will take 5 mg twice daily. -Her high flow oxygen was weaned off now patient is on 3 L of oxygen and maintaining saturation 95%. -Her troponins remain negative for any strain on right heart. -Follow-up echocardiogram results. -Lower extremity Doppler studies negative for DVT. -Her chest x-ray showed stable trace amount of right-sided pleural effusion without any congestion in the right leg. -Speech therapist recommended regular diet with thin liquids. -Patient will get outpatient hypercoagulability workup and possible PET scan as outpatient. Per oncology there is no clear-cut best choice for oral anticoagulation at this point considering her lung cancer in the past. -Follow-up pulmonary recommendations. Acute COPD exacerbation due to acute bronchitis and CAP: -Patient reported cough with yellow colored sputum the last couple of days. Patient is afebrile and her WBC count is within normal limits. -Possibly patient has acute bronchitis. -Her blood, urine and sputum cultures remain negative so far. -Continue azithromycin 500 mg daily, day 4 -Continue ceftriaxone empirically to cover for typical pneumonia. If patient remained afebrile and her WBC count remained within normal limits with negative sputum culture we will discontinue. day 4. -Continue Solu-Medrol 40 mg every 12 hourly -Continue TRC nebulization as needed. -Strep and Legionella antigen remained negative. Hyperkalemia:(RESOLVED) -Yesterday patient has mild hyperkalemia with potassium level of 5.5 -Patient received 1 Kayexalate and her repeat potassium came back 4.9. -Today her k is 4.5. Hyponatremia:(improving) -Less likely due to SIADH as it did not respond to fluid restriction. Most likely due to dehydration. -Her serum osmolality is 294 and urine osmolality is 365. Her random urine excretion of sodium is 8. -Fluid restriction to 1500ml/day. -Today her sodium level is 138. Acute kidney injury:(improving) -Possibly due to dehydration and one-time use of small dose of Lasix. -Her creatinine is 1.2 and GFR is 43. -We will encourage patient to drink orally. -We will follow-up kidney function. History of hypertension hyperlipidemia: -Continue metoprolol and Lipitor History of GERD: -Continue omeprazole as needed DVT prophylaxis: Mechanical and patient is already on Eliquis. CODE STATUS: DNR/intu Problem List: 1. Acute on chronic respiratory failure with hypoxia 2. Acute bronchitis 3. Pneumonia Pain Ratin Pain Location: none Pain Goal: Remain pain free Pain Plan: pain pathway Tomorrow's Labs & Rationales: Max Yoo MD 06/28/18 1221: Attending MD Review Statement Attending Statement Attending MD Statement: examined this patient, agreed w/resident/PA/[employer], reviewed EMR data (avail), discussed with nursing, amended to note Attending Assessment/Plan: Mrs. Martin was interviewed and examined. Her EMR was reviewed. She denies fever and chills. She does note cough and chest congestion. She states overall that her lung function is improving. She has remained afebrile with stable heart and respiratory rates. Blood pressure is acceptable. Oxygen saturations remained satisfactory and stable on 3 L via nasal cannula. She is in no acute distress. Pulmonary exam is notable for decreased breath sounds on the left. There is good air exchange on the right with right-sided rhonchi. Heart exam is benign. WBC remained at 9400 with normal H&H and platelets. Renal function is stable with a creatinine of 1.1 and a BUN of 48. Her cultures remain negative. We are continuing to treat her pulmonary emboli with apixaban. We are continuing ceftriaxone and azithromycin for her pneumonitis/AECOPD/hypoxemic respiratory failure. We are continuing parenteral steroids and will taper as appropriate. We are continuing to supplement with oxygen to maintain an SaO2 greater than 93%. We are continuing her maintenance medications.
[2018-06-28 08:14] LABS: ABSOLUTE BASOPHIL COUNT 0 /CUMM (0.0-0.2); ABSOLUTE EOSINOPHIL COUNT 0 /CUMM (0.0-0.7); ABSOLUTE GRANULOCYTE CT 8.8 /CUMM (1.4-6.5); ABSOLUTE LYMPH COUNT 0.2 /CUMM (1.2-3.4); ABSOLUTE MONOCYTE COUNT 0.3 /CUMM (0.10-0.60); BASOPHIL % 0 % (0.0-2.0); EOSINOPHIL % 0.1 % (0-5); GRANULOCYTE % 94.1 % (42.2-75.2); HEMATOCRIT 38.8 % (37-47); MEAN CORPUSCULAR HGB 28.6 PG (27.0-31.0); MEAN CORPUSCULAR VOLUME 89.4 FL (81.0-99.0); MEAN PLATELET VOLUME 8.3 FL (7.4-10.4); PLATELET COUNT 238 /CUMM (130-400); RBC DISTRIBUTION WIDTH 16.5 % (11.5-14.5); RED BLOOD CELL CT 4.34 /CUMM (4.20-5.40); WHITE BLOOD CELL COUNT 9.4 /CUMM (4.8-10.8)
--- NOTE | 2018-06-28 11:16 | PN- Pulmonary ---
Subjective HPI/Critical Care Issues: pt seen and examined afebrile hemodynamically stable 97% on 3LNC No n/v/d/c, no cp, no corrales, able to ambulate Objective Current Medications: Current Medications Sig/Christina Start time Last Medication Dose Route Stop Time Status Admin Acetaminophen 650 MG Q6P PRN 06/24 2030 AC PO Albuterol Sulfate 3 ML EVERY 4 HRS/AWAKE 06/25 1200 AC 06/28 INH 0801 Apixaban 10 MG BID 06/26 1530 AC 06/28 PO 07/03 09 0904 Aspirin 81 MG DAILY 06/25 09 AC 06/28 PO 0904 Atorvastatin Calcium 5 MG DAILY 06/25 09 AC 06/28 PO 0906 Azithromycin 500 MG DAILY 06/25 1009 AC 06/28 Sodium Chloride 250 ML IV 09 Ceftriaxone Sodium 1,000 MG DAILY 06/25 1105 AC 06/28 IV 0903 Dorzolamide HCl 1 GTT BID 06/25 2100 AC 06/28 OPH 0903 Guaifenesin 10 ML Q6P PRN 06/25 2115 AC 06/28 PO 0903 Guaifenesin 600 MG Q12 06/25 1444 DC PO Latanoprost 1 GTT QPM 06/25 2100 AC 06/27 OPH 2202 Methylprednisolone 40 MG Q12 06/25 1105 AC 06/28 IV 0903 Metoprolol Tartrate 100 MG DAILY 06/25 09 AC 06/28 PO 0905 Oxycodone HCl 5 MG Q6PRN PRN 06/24 2045 AC PO Oxycodone/ 2 TAB Q6P PRN 06/24 2030 AC Acetaminophen PO Timolol Maleate 1 GTT BID 06/25 2100 AC 06/28 OPH 0903 Vital Signs & I&O Last 24 Hrs of Vitals and I&O: Vital Signs Date Time Temp Pulse Resp B/P B/P Pulse O2 O2 Flow FiO2 Mean Ox Delivery Rate 06/28 09 89 130/68 06/28 0802 97 Nasal 3.0L Cannula 06/28 0713 97.4 81 18 132/78 96 Nasal Cannula 06/28 0000 98 Nasal 3.0L Cannula 06/27 2222 96.8 72 18 128/84 98 Nasal 3.0L Cannula 06/27 1720 98 Nasal 3.0L Cannula 06/27 1600 Nasal 3.0L Cannula 06/27 1432 97.6 70 20 114/70 98 Nasal 3.0L Cannula Intake & Output 06/28 1600 06/28 0800 06/28 0000 Intake Total 350 Output Total 450 Balance -100 Intake, Oral 350 Number 4 Bowel Movements Output, Urine 450 Patient 124 lb Weight Weight Bed scale Measurement Method Exam Other Physical Findings: Generally - Awake, alert and comfortable without distress Head and neck - normocephalic, atraumatic, EOMI grossly intact Cardiovascular - S1, S2, no murmurs, rubs or gallops Lungs - rhonchi on right, hx of pneumonectomy on left Abdomen - Bowel sounds positive, soft, non-tender Extremities - b/l mild edema Results Last 24 Hrs of Lab Results: Laboratory Tests 06/28/18 0620: Anion Gap 8, Estimated GFR 48 L, BUN/Creatinine Ratio 35.5 H, CBC w Diff MAN DIFF ORDERED, RBC 4.34, MCV 89.4, MCH 28.6, MCHC 32.0 L, RDW 16.5 H, MPV 8.3, Gran % 94.1 H, Lymphocytes % 2.6 L, Monocytes % 3.2, Eosinophils % 0.1, Basophils % 0, Absolute Granulocytes 8.8 H, Absolute Lymphocytes 0.2 L, Absolute Monocytes 0.3, Absolute Eosinophils 0, Absolute Basophils 0, Platelet Estimate VERIFIED BY SMEAR, Basophilic Stippling 1+, Anisocytosis 1+ 06/27/18 1620: Anion Gap 12, Estimated GFR 39 L, BUN/Creatinine Ratio 32.3 H 06/27/18 1300: Sodium Cancelled, Potassium Cancelled, Chloride Cancelled, Carbon Dioxide Cancelled, Anion Gap Cancelled, BUN Cancelled, Creatinine Cancelled, BUN/ Creatinine Ratio Cancelled Impression/Plan Impression/Plan Impression/Plan: Impression 82-year-old woman * RLL segmental and subsegmental pulmonary emboli * History of left pneumonectomy * Irregular scattered nodular densities on CT chest and parenchymal opacity in the right upper lobe with air bronchograms and mild bronchiectasis, these findings can be employment program representative of post treatment changes and scarring however pneumonia cannot be ruled out * Exacerbation of COPD Plan -continue Eliquis -f/u ECHO results -Continue antibiotics for community-acquired pneumonia with ceftriaxone and Zithromax -Continue Solu-Medrol 40 mg every 12 - will taper with you -TRC/nebs -SPO2 go above 92% -Plan for outpatient oncology/pulmonary/PET scan follow-up DVT prophylaxis at all times
--- NOTE | 2018-06-28 13:43 | ECHOCARDIOGRAM REPORT ---
LITO TOBIN Age: 82 : 1935 Gender: F Exam Date: 06/27/2018 10:19 Exam Location: [address] Ht (in): 63 Wt (lb): 124 BSA: 1.58 BP: 110 / 44 Ordering Physician: Gutierrez Martines MD Referring Physician: Gutierrez Martines MD Technologist: Rohan Gracia [facility] Room Number: 179-2 Indications: Acute pulmonary embolism Rhythm: Sinus Technical Quality: good FINDINGS Left Ventricle Normal left ventricular size, wall thickness and systolic function with no obvious regional wall motion abnormalities. The ejection fraction is visually estimated at 65 %. Diastolic function was not evaluated. Right Ventricle The right ventricle is normal in size and function. Right Atrium The right atrium is enlarged. Left Atrium The left atrium is enlarged. The interatrial septum is intact. Mitral Valve There is moderate MAC and trace mitral regurgitation. Aortic Valve Structurally normal aortic valve with mild sclerosis but no significant stenosis. There is mild aortic regurgitation. Tricuspid Valve The tricuspid valve is normal in structure and function. There is severe tricuspid regurgitation. Pulmonary artery systolic pressure is elevated at 60 mmHg. Pulmonic Valve Structurally normal pulmonic valve. There is mild pulmonic regurgitation. Pericardium Normal pericardium without effusion. No pleural effusion. Great Vessels Normal aortic root dimension. CONCLUSIONS Normal left ventricular size, wall thickness and systolic function with no obvious regional wall motion abnormalities. The ejection fraction is visually estimated at 65 %. Diastolic function was not evaluated. The right ventricle is normal in size and function. The right atrium is enlarged. The left atrium is enlarged. The interatrial septum is intact. There is moderate MAC and trace mitral regurgitation. Structurally normal aortic valve with mild sclerosis but no significant stenosis. There is mild aortic regurgitation. There is severe tricuspid regurgitation. Pulmonary artery systolic pressure is elevated at 60 mmHg. There is mild pulmonic regurgitation. Normal pericardium without effusion. Normal aortic root dimension. Ananya Polo M.D. (Electronically Signed) Final Date: 28 June 2018 13:42 MEASUREMENTS (Male / Female) Normal Values 2D ECHO LV Diastolic Diameter PLAX 3.4 cm 4.2 - 5.9 / 3.9 - 5.3 cm LV Systolic Diameter PLAX 1.6 cm 2.1 - 4.0 cm LV Fractional Shortening PLAX 52.9 % 25 - 46 % LV Ejection Fraction 2D Teich 84.9 % IVS Diastolic Thickness 0.9 cm LVPW Diastolic Thickness 0.9 cm LV Relative Wall Thickness 0.5 LVOT Diameter 1.8 cm Aortic Root Diameter 3.1 cm LA Systolic Diameter LX 2.8 cm 3.0 - 4.0 / 2.7 - 3.8 cm Ascending Aorta Diameter 3.3 cm DOPPLER AV Peak Velocity 157.0 cm/s AV Peak Gradient 9.9 mmHg AV Mean Velocity 95.9 cm/s AV Mean Gradient 4.0 mmHg AV Velocity Time Integral 32.2 cm AI Deceleration [place] 273.5 cm/s AI Peak Velocity 439.0 cm/s AI Pressure Half Time 471.0 ms AI Peak Gradient 77.1 mmHg LVOT Peak Velocity 105.0 cm/s LVOT Peak Gradient 4.4 mmHg LVOT Mean Velocity 66.5 cm/s LVOT Mean Gradient 2.0 mmHg LVOT Velocity Time Integral 24.0 cm LVOT Stroke Volume 61.1 cm AV Area Cont Eq vti 1.9 cm AV Area Cont Eq pk 1.7 cm MV Peak Velocity 103.0 cm/s MV Peak Gradient 4.2 mmHg MV Mean Velocity 60.1 cm/s MV Mean Gradient 2.0 mmHg Mitral E Point Velocity 93.8 cm/s Mitral A Point Velocity 93.3 cm/s Mitral E to A Ratio 1.0 MV PHT Velocity 114.0 cm/s MV Deceleration [place] 474.0 cm/s MV Pressure Half Time 72.2 ms MV Area PHT 3.0 cm MV Deceleration Time 229.0 ms TR Peak Velocity 373.0 cm/s TR Peak Gradient 55.7 mmHg Right Atrial Pressure 10.0 mmHg Pulmonary Artery Systolic Pressure 65.7 mmHg Right Ventricular Systolic Pressure 65.7 mmHg PV Peak Velocity 72.8 cm/s PV Peak Gradient 2.1 mmHg PV Mean Velocity 48.6 cm/s PV Mean Gradient 1.0 mmHg PV Velocity Time Integral 17.0 cm
[2018-06-28 13:53] VITALS: BP 112/60
[2018-06-28 23:45] VITALS: BP 136/84
[2018-06-29 07:00] VITALS: BP 170/90
--- NOTE | 2018-06-29 08:54 | PN- Housestaff ---
Subjective Follow-up For: Right lung lower lobe PE subsegmental and segmental. Acute COPD exacerbation due to acute broncitis and CAP. Hyponatremia REMEDIOS Subjective: Afebrile overnight. Patient is seen and examined this morning. Patient states she does not feel good this morning and complains of lightheadedness. Patient had an elevated potassium level this morning at 5.4 and will follow up with an ECG. Patient otherwise had some breakfast this morning and denies any nausea, vomiting, dizziness, chest pain, and palpitations. Review of Systems Constitutional: Reports: see HPI. Objective Last 24 Hrs of Vital Signs/I&O Vital Signs Date Time Temp Pulse Resp B/P B/P Pulse O2 O2 Flow FiO2 Mean Ox Delivery Rate 06/29 1032 85 158/90 06/29 0700 97.8 85 20 170/90 100 Nasal Cannula 06/28 2345 97.5 77 18 136/84 97 Nasal Cannula 06/28 2308 Nasal 3.0L Cannula 06/28 2021 95 Nasal 2.0L Cannula 06/28 1613 96 Nasal 3.0L Cannula 06/28 1600 95 Nasal 3.0L Cannula 06/28 1353 98.1 67 18 112/60 98 Nasal 4.0L Cannula Intake & Output 06/29 1600 06/29 0800 06/29 0000 Intake Total 120 200 Output Total 400 Balance -280 200 Intake, Oral 120 200 Output, Urine 400 Patient 124 lb Weight Physical Exam General Appearance: Alert, Oriented X3, Cooperative, No Acute Distress Skin: No Rashes Skin Temp/Moisture Exam: Warm/Dry HEENT: Atraumatic Neck: Supple, No JVD Cardiovascular: Regular Rate, Normal S1, Normal S2 Lungs: decreased breath sounds b/l Neurological: Normal Speech Assessment/Plan Assessment: 82 YO F with past medical history of non-small cell lung cancer status post left pneumonectomy, hyperlipidemia, GERD, hypertension came in with chief complaint of worsening shortness of breath 2-3 weeks prior to presentation. Patient reported that she is recently diagnosed with cancer in the right lung. Being seen on telemetry floor for following problems. Acute on chronic hypoxic respiratory failure due to right lung lower lobe subsegmental and segmental PE: -Possibly due to PE, copd exacerbation due to acute bronchitis. Patient was on 2 L of oxygen after her pneumonectomy as she was not able maintain her saturation after pneumonectomy. -Patient has history of non-small cell lung cancer with chemo status post left pneumonectomy and right adenocarcinoma status post radiotherapy. -Patient reported shortness of breath for last couple of days. CTA showed right lung lower lobe segmental and subsegmental PE. -Patient was started on 10 mg Eliquis twice daily for 7 days and then she will take 5 mg twice daily. -Her high flow oxygen was weaned off now patient is on 3 L of oxygen and maintaining saturation 95%. -Her troponins remain negative for any strain on right heart. -Follow-up echocardiogram results. -Lower extremity Doppler studies negative for DVT. -Her chest x-ray showed stable trace amount of right-sided pleural effusion without any congestion in the right leg. -Speech therapist recommended regular diet with thin liquids. -Patient will get outpatient hypercoagulability workup and possible PET scan as outpatient. Per oncology there is no clear-cut best choice for oral anticoagulation at this point considering her lung cancer in the past. -Follow-up pulmonary recommendations. Acute COPD exacerbation due to acute bronchitis and CAP: -Patient reported cough with yellow colored sputum the last couple of days. Patient is afebrile and her WBC count is within normal limits. -Possibly patient has acute bronchitis. -Her blood, urine and sputum cultures remain negative so far. -Continue azithromycin 500 mg daily, day 4 -Continue ceftriaxone empirically to cover for typical pneumonia. If patient remained afebrile and her WBC count remained within normal limits with negative sputum culture we will discontinue. day 4. -Continue Solu-Medrol 40 mg every 12 hourly -Continue TRC nebulization as needed. -Strep and Legionella antigen remained negative. Hyperkalemia:(RESOLVED) -Yesterday patient has mild hyperkalemia with potassium level of 5.5 -Patient received 1 Kayexalate and her repeat potassium came back 4.9. -Today her k is 4.5. Hyponatremia:(improving) -Less likely due to SIADH as it did not respond to fluid restriction. Most likely due to dehydration. -Her serum osmolality is 294 and urine osmolality is 365. Her random urine excretion of sodium is 8. -Fluid restriction to 1500ml/day. -Today her sodium level is 138. Acute kidney injury:(improving) -Possibly due to dehydration and one-time use of small dose of Lasix. -Her creatinine is 1.2 and GFR is 43. -We will encourage patient to drink orally. -We will follow-up kidney function. History of hypertension hyperlipidemia: -Continue metoprolol and Lipitor History of GERD: -Continue omeprazole as needed DVT prophylaxis: Mechanical and patient is already on Eliquis. CODE STATUS: DNR/DNI Problem List: 1. Acute on chronic respiratory failure with hypoxia 2. Acute bronchitis 3. Pneumonia Pain Ratin Pain Location: na Pain Goal: Remain pain free Pain Plan: na Tomorrow's Labs & Rationales: routine
[2018-06-29 09:24] LABS: ABSOLUTE BASOPHIL COUNT 0 /CUMM (0.0-0.2); ABSOLUTE EOSINOPHIL COUNT 0 /CUMM (0.0-0.7); ABSOLUTE GRANULOCYTE CT 8.7 /CUMM (1.4-6.5); ABSOLUTE LYMPH COUNT 0.2 /CUMM (1.2-3.4); ABSOLUTE MONOCYTE COUNT 0.3 /CUMM (0.10-0.60); BASOPHIL % 0 % (0.0-2.0); EOSINOPHIL % 0 % (0-5); HEMATOCRIT 37.8 % (37-47); MEAN CORPUSCULAR HGB 28.9 PG (27.0-31.0); MEAN CORPUSCULAR HGB CONC 32.3 G/DL (33.0-37.0); MEAN CORPUSCULAR VOLUME 89.3 FL (81.0-99.0); MEAN PLATELET VOLUME 8.2 FL (7.4-10.4); PLATELET COUNT 229 /CUMM (130-400); RBC DISTRIBUTION WIDTH 16.7 % (11.5-14.5); RED BLOOD CELL CT 4.23 /CUMM (4.20-5.40)
--- NOTE | 2018-06-29 09:49 | PN- Pulmonary ---
Subjective HPI/Critical Care Issues: pt seen and examined afebrile hemodynamically stable 97% on 3LNC No n/v/d/c, no cp, no corrales, able to ambulate with oxygen Objective Current Medications: Current Medications Sig/Christina Start time Last Medication Dose Route Stop Time Status Admin Acetaminophen 650 MG Q6P PRN 06/24 2030 AC PO Albuterol Sulfate 3 ML EVERY 4 HRS/AWAKE 06/25 1200 AC 06/29 INH 0834 Apixaban 10 MG BID 06/26 1530 AC 06/28 PO 07/03 09 2132 Aspirin 81 MG DAILY 06/25 09 AC 06/28 PO 09 Atorvastatin Calcium 5 MG DAILY 06/25 09 AC 06/28 PO 09 Azithromycin 500 MG DAILY 06/25 1009 AC 06/28 Sodium Chloride 250 ML IV 09 Ceftriaxone Sodium 1,000 MG DAILY 06/25 1105 AC 06/28 IV 0903 Dorzolamide HCl 1 GTT BID 06/25 2100 AC 06/28 OPH 2139 Guaifenesin 10 ML Q6P PRN 06/25 2115 AC 06/28 PO 09 Latanoprost 1 GTT QPM 06/25 2100 AC 06/28 OPH 2139 Methylprednisolone 40 MG Q12 06/25 1105 AC 06/28 IV 2132 Metoprolol Tartrate 100 MG DAILY 06/25 09 AC 06/28 PO 09 Oxycodone HCl 5 MG Q6PRN PRN 06/24 204 AC PO Oxycodone/ 2 TAB Q6P PRN 06/24 2030 AC Acetaminophen PO Timolol Maleate 1 GTT BID 06/25 2100 AC 06/28 OPH 2139 Vital Signs & I&O Last 24 Hrs of Vitals and I&O: Vital Signs Date Time Temp Pulse Resp B/P B/P Pulse O2 O2 Flow FiO2 Mean Ox Delivery Rate 06/29 07 97.8 85 20 170/90 100 Nasal Cannula 06/28 2345 97.5 77 18 136/84 97 Nasal Cannula 06/28 2308 Nasal 3.0L Cannula 06/28 2021 95 Nasal 2.0L Cannula 06/28 1613 96 Nasal 3.0L Cannula 06/28 1600 95 Nasal 3.0L Cannula 06/28 1353 98.1 67 18 112/60 98 Nasal 4.0L Cannula Intake & Output 06/29 1600 06/29 0800 06/29 0000 Intake Total 120 200 Output Total 400 Balance -280 200 Intake, Oral 120 200 Output, Urine 400 Patient 124 lb Weight Exam Other Physical Findings: Generally - Awake, alert and comfortable without distress Head and neck - normocephalic, atraumatic, EOMI grossly intact Cardiovascular - S1, S2, no murmurs, rubs or gallops Lungs - rhonchi on right, hx of pneumonectomy on left Abdomen - Bowel sounds positive, soft, non-tender Extremities - b/l mild edema Results Last 24 Hrs of Lab Results: Laboratory Tests 06/29/18 0637: Sodium Pending, Potassium Pending, Chloride Pending, Carbon Dioxide Pending, Anion Gap Pending, BUN Pending, Creatinine Pending, BUN/Creatinine Ratio Pending , CBC w Diff Pending, WBC Pending, RBC Pending, Hgb Pending, Hct Pending, MCV Pending, MCH Pending, MCHC Pending, RDW Pending, Plt Count Pending, MPV Pending, Gran % Pending, Lymphocytes % Pending, Monocytes % Pending, Eosinophils % Pending, Basophils % Pending, Absolute Granulocytes Pending, Absolute Lymphocytes Pending, Absolute Monocytes Pending, Absolute Eosinophils Pending, Absolute Basophils Pending Impression/Plan Impression/Plan Impression/Plan: Impression 82-year-old woman * RLL segmental and subsegmental pulmonary emboli * History of left pneumonectomy * Irregular scattered nodular densities on CT chest and parenchymal opacity in the right upper lobe with air bronchograms and mild bronchiectasis, these findings can be traveling representative of post treatment changes and scarring however pneumonia cannot be ruled out * Exacerbation of COPD Plan -continue Eliquis -Continue antibiotics for community-acquired pneumonia with ceftriaxone and Zithromax - 7 days would be sufficient -D/C Solu-Medrol - s/p dose today - begin prednisone 40mg 06/30 -assess oximetry with exertion -TRC/nebs -SPO2 go above 92% -Plan for outpatient oncology/pulmonary/PET scan follow-up DVT prophylaxis at all times
[2018-06-29 10:09] LABS: WHITE BLOOD CELL COUNT 9.2 /CUMM (4.8-10.8)
--- NOTE | 2018-06-29 10:40 | PN- Att Addend ---
Attending Addendum Attending Brief Note Mrs. Martin was interviewed and examined. Her EMR was reviewed. She still notes productive cough of yellow to brown sputum but no hemoptysis. She notes epistaxis in the form of blood on the tissue when she blew her nose. She denies fever and chills. She denies nausea vomiting and diarrhea. She denies chest pain and palpitations. She has remained afebrile. Heart and respiratory rates are stable. She had a mild elevation of her his systolic blood pressure earlier today but otherwise values are acceptable. She is saturating well on 3 L via nasal cannula. She tolerated ambulation without issue yesterday. She is in no acute distress. Lung exam reveals decreased breath sounds on the left. Heart exam reveals a regular rate and rhythm with a 1-2/6 systolic ejection murmur. Abdominal exam is benign. CBC is stable as are her electrolytes with the exception of a mild elevation of her potassium level. Her renal function is stable. We are continuing to treat her pneumonia/AECOPD with IV ceftriaxone and azithromycin. We are continuing her nebulizer treatments and parenteral steroids. We are continuing supplemental oxygen. We will need to quantify her oxygen need both at rest and with exertion. She has begun on incentive spirometry. She continues on apixaban for her PTE. Epistaxis as noted above was most likely related to her supplemental oxygen. We are continuing her maintenance medications. We anticipate discharge in the a.m.
[2018-06-29 15:07] VITALS: BP 132/78
[2018-06-29 22:17] VITALS: BP 140/70
[2018-06-30 06:49] VITALS: BP 126/82
--- NOTE | 2018-06-30 07:11 | PN- Housestaff ---
Subjective Follow-up For: Right lung lower lobe PE subsegmental and segmental. Acute COPD exacerbation due to acute broncitis and CAP.(improving) Hyponatremia (improved) REMEDIOS (improving) Tele-Events Since Last Visit: Patient remained in sinus rhythm with heart rate between 63-67 Subjective: No overnight events. Patient remained afebrile. Seen and examined this morning. Her cough and sputum has been improved. Patient is feeling much improved overall. She denied chest pain, palpitation, nausea, vomiting, chill, fever, abdominal pain dysuria. She is on 2 L of oxygen and maintaining saturation 99%. Review of Systems Constitutional: Denies: chills, fever, weakness. EENTM: Reports: no symptoms. Cardiovascular: Denies: chest pain, palpitations, syncope. Respiratory: Reports: cough. Denies: short of breath, sputum production, wheezing. Gastrointestinal: Denies: abdominal pain, constipation, diarrhea, nausea, vomiting. Genitourinary: Reports: no symptoms. Neurological/Psychological: Reports: no symptoms. Objective Last 24 Hrs of Vital Signs/I&O Vital Signs Date Time Temp Pulse Resp B/P B/P Pulse O2 O2 Flow FiO2 Mean Ox Delivery Rate 06/30 0801 97 Nasal 2.0L Cannula 06/30 0649 97.6 66 18 126/82 99 06/30 0000 Nasal 2.0L Cannula 06/29 2217 97.4 68 19 140/70 98 06/29 1556 94 Nasal 2.0L Cannula 06/29 1507 97.7 83 18 132/78 94 Nasal Cannula 06/29 1431 20 94 Nasal 3.0L Cannula 06/29 1431 20 84 Room Air 06/29 1430 20 91 Nasal 3.0L Cannula 06/29 1429 18 92 Room Air 06/29 1428 18 93 Nasal 3.0L Cannula 06/29 1208 92 Nasal 3.0L Cannula 06/29 1032 85 158/90 Intake & Output 06/30 1600 06/30 0800 06/30 0000 Intake Total 120 Output Total Balance 120 Intake, Oral 120 Patient 123 lb Weight Physical Exam General Appearance: Alert, Oriented X3, Cooperative Skin Temp/Moisture Exam: Warm/Dry Sepsis Skin Exam (color): Normal for Ethnicity HEENT: Atraumatic, PERRLA, EOMI Neck: Supple Cardiovascular: Normal S1, Normal S2 Lungs: Clear to Auscultation Abdomen: Soft, No Tenderness Neurological: Normal Speech, Strength at 5/5 X4 Ext, Normal Tone Extremities: b/l pedal edema Assessment/Plan Assessment: 82 YO F with past medical history of non-small cell lung cancer status post left pneumonectomy, hyperlipidemia, GERD, hypertension came in with chief complaint of worsening shortness of breath 2-3 weeks prior to presentation. Patient reported that she is recently diagnosed with cancer in the right lung. Being seen on telemetry floor for following problems. Acute on chronic hypoxic respiratory failure due to right lung lower lobe subsegmental and segmental PE: -Possibly due to PE, copd exacerbation due to acute bronchitis. Patient was on 2 L of oxygen after her pneumonectomy as she was not able maintain her saturation after pneumonectomy. -Patient has history of non-small cell lung cancer with chemo status post left pneumonectomy and right adenocarcinoma status post radiotherapy. -Patient reported shortness of breath for last couple of days. CTA showed right lung lower lobe segmental and subsegmental PE. -Patient was started on 10 mg Eliquis twice daily for 7 days and then she will take 5 mg twice daily. -Her high flow oxygen was weaned off now patient is on 2 L of oxygen and maintaining saturation 99%. -Her troponins remain negative for any strain on right heart. -Cardiogram showed ejection fraction 65% and having pulmonary hypertension. -Lower extremity Doppler studies negative for DVT. -Her chest x-ray showed stable trace amount of right-sided pleural effusion without any congestion in the right leg. -Speech therapist recommended regular diet with thin liquids. -Patient will get outpatient hypercoagulability workup and possible PET scan as outpatient. Per oncology there is no clear-cut best choice for oral anticoagulation at this point considering her lung cancer in the past. -Follow-up pulmonary recommendations. Acute COPD exacerbation due to acute bronchitis and CAP:(improving) -Patient reported cough with yellow colored sputum the last couple of days. Patient is afebrile and her WBC count is within normal limits. -Possibly patient has acute bronchitis. -Her blood, urine and sputum cultures remain negative so far. -Continue azithromycin 500 mg daily, day 6 -Continue ceftriaxone empirically to cover for typical pneumonia. If patient remained afebrile and her WBC count remained within normal limits with negative sputum culture we will discontinue. day 6. Total 7 days course of antibiotics. -Continue prednisone 40 mg daily. -Continue TRC nebulization as needed. -Strep and Legionella antigen remained negative. Hyperkalemia:(RESOLVED) -Yesterday patient has mild hyperkalemia with potassium level of 5.5 -Patient received 1 Kayexalate and her repeat potassium came back 4.9. -Today her k is 4.5. Hyponatremia:(improving) -Less likely due to SIADH as it did not respond to fluid restriction. Most likely due to dehydration. -Her serum osmolality is 294 and urine osmolality is 365. Her random urine excretion of sodium is 8. -Fluid restriction to 1500ml/day. -Yesterday her sodium level is 137. Acute kidney injury:(improving) -Possibly due to dehydration and one-time use of small dose of Lasix. -Her creatinine is 1.2 and GFR is 43. -We will encourage patient to drink orally. -We will follow-up kidney function. History of hypertension hyperlipidemia: -Continue metoprolol and Lipitor History of GERD: -Continue omeprazole as needed DVT prophylaxis: Mechanical and patient is already on Eliquis. CODE STATUS: DNR/intu Problem List: 1. Pneumonia 2. Acute on chronic respiratory failure with hypoxia 3. Pulmonary embolism Pain Ratin Pain Location: none Pain Goal: Remain pain free Pain Plan: pain pathway Tomorrow's Labs & Rationales: none
[2018-06-30 08:27] LABS: ABSOLUTE BASOPHIL COUNT 0 /CUMM (0.0-0.2); ABSOLUTE EOSINOPHIL COUNT 0 /CUMM (0.0-0.7); ABSOLUTE GRANULOCYTE CT 9.4 /CUMM (1.4-6.5); ABSOLUTE LYMPH COUNT 0.5 /CUMM (1.2-3.4); ABSOLUTE MONOCYTE COUNT 0.8 /CUMM (0.10-0.60); BASOPHIL % 0 % (0.0-2.0); EOSINOPHIL % 0 % (0-5); HEMATOCRIT 38.8 % (37-47); MEAN CORPUSCULAR HGB 28.2 PG (27.0-31.0); MEAN CORPUSCULAR HGB CONC 31.6 G/DL (33.0-37.0); MEAN CORPUSCULAR VOLUME 89.2 FL (81.0-99.0); MEAN PLATELET VOLUME 8.3 FL (7.4-10.4); PLATELET COUNT 243 /CUMM (130-400); RBC DISTRIBUTION WIDTH 16.6 % (11.5-14.5); RED BLOOD CELL CT 4.35 /CUMM (4.20-5.40); WHITE BLOOD CELL COUNT 10.7 /CUMM (4.8-10.8)
[2018-06-30 09:50] LABS: GRANULOCYTE % 87.6 % (42.2-75.2)
--- NOTE | 2018-06-30 11:00 | PN- Att Addend ---
Attending Addendum Attending Brief Note Patient about the same. Daughter at the bedside. On 2 L of nasal O2. Some cough. Vital signs are stable no fever. No major changes on physical exam. Will switch to p.o. steroids and continue p.o. antibiotics for a couple of days more and start disposition plans Intake & Output 06/30 1600 06/30 0400 06/29 1600 06/29 0400 06/28 1600 06/28 0400 Intake Total 120 122 032 2217 350 Output Total 1200 800 450 Balance 120 -250 200 250 -100 Intake, IV 30 250 Intake, Oral 120 920 200 800 350 Number 1 4 Bowel Movements Output, Urine 1200 800 450 Patient 123 lb 124 lb 124 lb Weight Weight Bed scale Measurement Method Current Medications Sig/Christina Start time Last Medication Dose Route Stop Time Status Admin Acetaminophen 650 MG Q6P PRN 06/24 2030 AC PO Albuterol Sulfate 3 ML EVERY 4 HRS/AWAKE 06/25 1200 AC 06/30 INH 0757 Apixaban 10 MG BID 06/26 1530 AC 06/30 PO 07/03 0901 0938 Aspirin 81 MG DAILY 06/25 900 AC 06/30 PO 0938 Atorvastatin Calcium 5 MG DAILY 06/25 09 AC 06/30 PO 0939 Azithromycin 500 MG DAILY 06/30 900 AC 06/30 Sodium Chloride 250 ML IV 0946 Ceftriaxone Sodium 1,000 MG DAILY 06/25 1105 AC 06/30 IV 0941 Dorzolamide HCl 1 GTT BID 06/25 2100 AC 06/30 OPH 0940 Guaifenesin 10 ML Q6P PRN 06/25 2115 AC 06/28 PO 0903 Latanoprost 1 GTT QPM 06/25 2100 AC 06/29 OPH 2113 Methylprednisolone 40 MG Q12 06/25 1105 DC 06/29 IV 1030 Metoprolol Tartrate 100 MG DAILY 06/25 900 AC 06/30 PO 0938 Oxycodone HCl 5 MG Q6PRN PRN 06/24 204 AC PO Oxycodone/ 2 TAB Q6P PRN 06/24 2030 AC Acetaminophen PO Prednisone 40 MG DAILY 06/30 900 AC 06/30 PO 0938 Timolol Maleate 1 GTT BID 06/25 2100 AC 06/30 OPH 0940 Laboratory Tests 06/30/18 0735: Anion Gap 5, Estimated GFR 48 L, BUN/Creatinine Ratio 45.5 H, CBC w Diff NO MAN DIFF REQ, RBC 4.35, MCV 89.2, MCH 28.2, MCHC 31.6 L, RDW 16.6 H, MPV 8.3, Gran % 87.6 H, Lymphocytes % 4.8 L, Monocytes % 7.6, Eosinophils % 0, Basophils % 0, Absolute Granulocytes 9.4 H, Absolute Lymphocytes 0.5 L, Absolute Monocytes 0.8 H, Absolute Eosinophils 0, Absolute Basophils 0 06/29/18 0637: Anion Gap 5, Estimated GFR 43 L, BUN/Creatinine Ratio 36.7 H, CBC w Diff MAN DIFF ORDERED, RBC 4.23, MCV 89.3, MCH 28.9, MCHC 32.3 L, RDW 16.7 H, MPV 8.2, Gran % 94.0 H, Lymphocytes % 2.6 L, Monocytes % 3.4, Eosinophils % 0, Basophils % 0, Absolute Granulocytes 8.7 H, Absolute Lymphocytes 0.2 L, Absolute Monocytes 0.3, Absolute Eosinophils 0, Absolute Basophils 0, Platelet Estimate VERIFIED BY SMEAR, Basophilic Stippling 1+, Anisocytosis 1+ 06/28/18 0620: Anion Gap 8, Estimated GFR 48 L, BUN/Creatinine Ratio 35.5 H, CBC w Diff MAN DIFF ORDERED, RBC 4.34, MCV 89.4, MCH 28.6, MCHC 32.0 L, RDW 16.5 H, MPV 8.3, Gran % 94.1 H, Lymphocytes % 2.6 L, Monocytes % 3.2, Eosinophils % 0.1, Basophils % 0, Absolute Granulocytes 8.8 H, Absolute Lymphocytes 0.2 L, Absolute Monocytes 0.3, Absolute Eosinophils 0, Absolute Basophils 0, Platelet Estimate VERIFIED BY SMEAR, Basophilic Stippling 1+, Anisocytosis 1+ 06/27/18 1620: Anion Gap 12, Estimated GFR 39 L, BUN/Creatinine Ratio 32.3 H 06/27/18 1300: Sodium Cancelled, Potassium Cancelled, Chloride Cancelled, Carbon Dioxide Cancelled, Anion Gap Cancelled, BUN Cancelled, Creatinine Cancelled, BUN/ Creatinine Ratio Cancelled Vital Signs Date Time Temp Pulse Resp B/P B/P Pulse O2 O2 Flow FiO2 Mean Ox Delivery Rate 06/30 938 77 140/70 06/30 0801 97 Nasal 2.0L Cannula 06/30 0649 97.6 66 18 126/82 99 06/30 0000 Nasal 2.0L Cannula 06/29 2217 97.4 68 19 140/70 98 06/29 1556 94 Nasal 2.0L Cannula 06/29 1507 97.7 83 18 132/78 94 Nasal Cannula 06/29 1431 20 94 Nasal 3.0L Cannula 06/29 1431 20 84 Room Air 06/29 1430 20 91 Nasal 3.0L Cannula 06/29 1429 18 92 Room Air 06/29 1428 18 93 Nasal 3.0L Cannula 06/29 1208 92 Nasal 3.0L Cannula Continue workup for coagulable state and staging to see if she has any active cancer as an outpatient.
[2018-06-30] MEDS ORDERED: AZITHROMYCIN250 M1 PO ×2 (12:17→13:17)
[2018-06-30] MEDS ORDERED: PREDNISONE5 M1 PO (13:17)
--- NOTE | 2018-06-30 13:25 | Discharge Summary ---
Visit Information Visit Dates Admission Date: 06/24/18 Discharge Date: 06/30/18 Hospital Course Course Attending Physician: Gabe Drake MD Primary Care Physician: Gabe Drake MD Hospital Course: 82 YO F with past medical history of non-small cell lung cancer status post left pneumonectomy, hyperlipidemia, GERD, hypertension came in with chief complaint of worsening shortness of breath 2-3 weeks prior to presentation. Patient reported that she is recently diagnosed with cancer in the right lung. ED course: Vitals: Temperature 97.6, pulse 70, respiratory rate 20, blood pressure 1 1 4/70 , oxygen saturation 98% on 3 L of oxygen. Labs: WBC count 9.4, hemoglobin 12.4, hematocrit 38.8, platelet count 230, sodium 130, potassium 4.5, BUN 39, creatinine 1.1, anion gap 8, GFR 48, BUN/ creatinine ratio 35.5 Acute on chronic hypoxic respiratory failure due to right lung lower lobe subsegmental and segmental PE: Patient was admitted with acute on chronic hypoxic respiratory failure and having pulmonary embolism on CTA. Patient had right lung lower lobe segmental and subsegmental PE unprovoked. Patient's baseline is 2 L home oxygen at nighttime. But on this admission patient was requiring oxygen during the daytime as she was desaturating to 80s. Patient was started on IV heparin initially and later on changed to Eliquis. Pulmonology consult was placed and recommendations were followed. Oncology consult was placed and recommendations were followed. Her troponin and EKG remain negative for any ischemic cardiac injury. Echocardiogram was done in that showed ejection fraction 65% and having pulmonary hypertension. Her lower extremity Doppler remained negative for DVT and talk about duration of anticoagulation. Patient was instructed to follow oncology as outpatient for hypercoagulability workup. She was also instructed to follow pulmonology as outpatient for further recommendations. Patient was requiring oxygen as she was desaturating to 86% at rest on room air. Acute COPD exacerbation due to acute bronchitis and CAP: Patient had acute COPD exacerbation possibly due to acute bronchitis and she has community-acquired pneumonia. Patient was at high risk of pneumonia as she had left pneumonectomy and right lung adenocarcinoma status post radiotherapy. Pulmonology consult was placed and recommendations were followed. Patient was started on ceftriaxone and azithromycin. Her sputum and blood cultures remain negative and she remained afebrile during hospital stay. She was given IV steroids that were later on changed to p.o. steroids with tapering dose. Patient received TRC nebulization as needed. Her Legionella and strep antigen remained negative. Patient had acute on chronic hypoxic respiratory failure and initially she was on supplemental oxygen with nasal cannula but later on she was requiring high flow oxygen 50%. Her high flow oxygen was tapered and she came back to her baseline 2 L of oxygen. Without oxygen on room air she was desaturated to 86% that is why she was discharged with oxygen. Patient was given azithromycin for 2 more days to complete 7 days antibiotic course. Patient was instructed to follow pulmonology as outpatient after the discharge. Hyperkalemia: Patient had hyperkalemia and she received 1 Kayexalate and her potassium level remained within normal limits. Hyponatremia: Patient had hyponatremia less likely due to SIADH as she did not respond to strict fluid restrictions. Her fluid restriction will increase to 1500 mL by day and she responded to that. Patient's hyponatremia has been improved possibly that was due to hypovolemic hyponatremia. Her serum osmolality was 294 and urine osmolarity was 365 with random urine excretion sodium was 8. Acute kidney injury: Possibly due to dehydration and one-time use of small dose of Lasix. R patient was encouraged to drink more oral fluid. Her renal function came back to baseline. History of hypertension hyperlipidemia: Continued metoprolol and Lipitor History of GERD: Continued omeprazole as needed. DVT prophylaxis: Mechanical and patient is already on Eliquis. CODE STATUS: DNR/intu Allergies: Coded Allergies: No Known Allergies (06/24/18) Disposition Summary Disposition Principal Diagnosis: Acute on chronic hypoxic respiratory failure due to pulmonary embolism Acute COPD exacerbation due to bronchitis and pneumonia Hypovolemic hyponatremia Acute kidney injury Additional Diagnosis: History of hypertension hyperlipidemia History of GERD History of lung cancer status post left pneumonectomy Discharge Disposition: home or self care Discharge Instructions General Discharge Information Code Status: Do Not Resucitate/Intubat Patient's Diet: Regular diet Patient's Activity: Self limited Follow-Up Instructions/Appts: Follow-up with your primary care physician in 1 week 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 with 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 1 week Follow-up with your oncologist in 1 week Medications at Discharge Discharge Medications: Continue taking these medications: Metoprolol Tartrate (Metoprolol Tartrate) 100 MG TABLET 1 Tablet ORAL DAILY Qty = 90 Rosuvastatin Calcium (Crestor) 5 MG TABLET 1 Tablet ORAL DAILY Qty = 90 Comments: ATORVASTATIN GIVEN INSTEAD Last Taken: 06/30/18 Time: 9:00 AM Aspirin (Aspirin*) 81 MG TAB.CHEW 1 Tablet ORAL DAILY Comments: Last Taken: 06/30/18 Time: 9:30 AN Pantoprazole Sodium (Pantoprazole Sodium) 40 MG TABLET.DR 1 Tablet ORAL DAILY as needed for GERD Qty = 60 Comments: NOT GIVEN DURING THIS HOSPITAL STAY Dorzolamide HCl/Timolol Maleat (Dorzolamide-Timolol Eye Drops) 22.3 MG-6.8 MG/ML DROPS 1 Drop In the eye TWICE DAILY Qty = 10 Comments: Last Taken: 06/30/18 Time: 9:00 AM Latanoprost (Latanoprost) 0.005 % DROPS 1 Drop In the eye Every night Qty = 2 Comments: Last Taken: 06/29/18 Time: 9:00 PM Start taking the following new medications: Azithromycin (Azithromycin) 250 MG TABLET 1 Tablet ORAL DAILY Qty = 2 No Refills Instructions: . Comments: Last Taken: 06/30/18 Time: 9:00 AM Apixaban (Eliquis) 5 MG TABLET 2 Tablet ORAL TWICE DAILY Qty = 60 No Refills Instructions: Take 2 tablets twice a day till 07/03/18 and from 07/04/18 start taking 1 tablet twicw a day. Comments: Last Taken: 06/30/18 Time: 9:00 AM Prednisone (Prednisone) 5 MG TABLET 0 ORAL DAILY Qty = 47 No Refills Instructions: On Take 07/01 40 MG 07/02-07/04 30 MG 07/05-07/07 20 MG 07/08-07/10 10 MG 07/11-07/13 5 MG Then Stop Comments: Last Taken: 06/30/18 Time: 9:00 AM Copies To: Latha GALLEGOS,Keyanna Vance; Faizan GALLEGOS,Stuart Hammond; Vidal GALLEGOS,Gabe
[2018-06-30 13:44] VITALS: BP 124/68
== END 2018-06-30 17:10 | DRG 175 ==
LOC: ERH 15:48 → ERHI 18:04 → 1NO 18:04 → ENRESERV 20:56 → ENTRNSPT 21:21 → EDTRNSPTSTS 21:23 → 1NO 21:38 → CMPTRNSPT 21:59 → ENPENDDIS 06-30 13:31 → ENTRNSPT 06-30 16:44 → EDTRNSPTSTS 06-30 17:06 → 1NO 06-30 17:10 → CMPTRNSPT 06-30 17:25
PROVIDERS: Internal Medicine; Physician Assistant Medical; Preventive Medicine Public Health & General Preventive Medicine; Student in an Organized Health Care Education/Training Program
DX: I26.99 Other pulmonary embolism without acute cor pulmonale (principal); J96.21 Acute and chronic respiratory failure with hypoxia; J18.9 Pneumonia, unspecified organism; E87.1 Hypo-osmolality and hyponatremia; J44.1 Chronic obstructive pulmonary disease with (acute) exacerbation; J44.0 Chronic obstructive pulmonary disease with (acute) lower respiratory infection; N17.9 Acute kidney failure, unspecified; Z90.2 Acquired absence of lung [part of]; Z85.118 Personal history of other malignant neoplasm of bronchus and lung; K44.9 Diaphragmatic hernia without obstruction or gangrene; K21.9 Gastro-esophageal reflux disease without esophagitis; E78.5 Hyperlipidemia, unspecified; H40.9 Unspecified glaucoma; I10 Essential (primary) hypertension; Z99.81 Dependence on supplemental oxygen; J20.9 Acute bronchitis, unspecified; D02.21 Carcinoma in situ of right bronchus and lung; Z87.891 Personal history of nicotine dependence; Z66 Do not resuscitate
CPT/HCPCS: 1NSP; 84133; 84300; 36415; 36592; 71045; 81001; 82436; 82570; 87040; 87070; 87086; 87449; 87450; 93005; 93010; 93306; 93970; 97116-GO; 97161-GP; 99291; J0456; J0696; J1644; J1940; J2920; J3490; J7040